=== PATIENT | female | born 1975 | race Caucasian/White ===

== ENCOUNTER 2018-04-29 14:28 | Inpatient (IN) | payer MEDICARE, OTHER ==
[~2018-04-29] VITALS: Ht 170.2 cm; Wt 92.2 kg
[~2018-04-29 14:28] MED LIST: IBUP-1986 PO
[2018-04-29] MEDS ORDERED: acetaminophen 325mg tablet PO PRN (15:10)
[2018-04-29] MEDS ORDERED: mag hydrox/Alum hydrox/simeth 30ml oral suspension PO PRN (15:10)
[2018-04-29] MEDS ORDERED: tuberculin, purif. prot. deriv. 5 units/0.1ml ID ONE (15:10)
[2018-04-29] MEDS ORDERED: TRAM50TA2 PO (15:57)
[2018-04-29] MEDS ORDERED: ASPI-803 PO (15:57)
[2018-04-29] MEDS ORDERED: TRAZ-218 PO (15:57)
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
[2018-04-29 16:45] LABS: CHOL/HDL RATIO 3.4 (0.00-4.99); CHOLESTEROL 141 MG/DL (0-200); HDL CHOLESTEROL 42 MG/DL (35-60); LDL CHOLESTEROL 80 MG/DL (50-100); TRIGLYCERIDES 53 MG/DL (20-135)
[2018-04-29 19:00] VITALS: BP 135/80
[2018-04-29] MEDS ORDERED: ondansetron 4mg rapidly disintigrating tab PO PRN (20:30)
--- NOTE | 2018-04-30 01:52 | NUR ---
Chief Complaint: Patient admitted for suicidal ideation, states she wants to cut her wrists or take an overdose of pills. Legal hold: 5150 Client on voluntary/involuntary status for DTS/DTO. Report received from ROMIE Desai with use of SBAR. Why are they here: Patient transferred her from [facility]. She is admitted for suicidal ideation. Patient threatens to overdose on medications or cut her own wrists. Patient threatens to hurt others if they hurt her. Patient has been off her [place] for the past six months. She describes command hallucinations and state they have been telling her to hurt herself. Diagnosis/presenting symptoms: Suicidal ideation, depression. Assessment: The patient presents with a flat affect. She self isolates in her room. Patient describes command hallucinations that tell her to hurt herself. Patient is cooperative with staff. Q15 minute rounding for patient safety. What has happened this shift: Patient stays in her room. She admits to depression. Patient states she has been off her [place] for the past six months. She is cooperative and compliant with nursing staff. S/I, H/I: "Yes, and if someone hurts me I will hurt them." A/VH: Command hallucinations tellig patient to hurt herself. Sleep:Good. ADL's:None Group attendance:Not on collection supervisor. Were meds taken: Patient is medication compliant. Any med S/E: None Mental Status Exam Appearance:Patient is dressed appropriately. Eye contact:Fair eye contact. Behavior:WNL Speech:WNL Mood:Depressed. Affect:Flat Thought process:Good insight. Thought Content:Command hallucinations. Cognition:Good focus. Insight:Good Judgment:Poor. Interventions: PRN's used:None Therapeutic interventions:None Restraints/seclusion/emergency medication:None Justification of Continued Inpatient Treatment: Patient is in need of medical management for her suicidal ideation and depression along with management of her psychiatric medications.
[2018-04-30 08:00] VITALS: BP 133/83
[2018-04-30] MEDS: nicotine 21mg patch - 24 hr TD SCH (08:04)
[2018-04-30] MEDS: acetaminophen 325mg tablet PO PRN (08:11)
[2018-04-30] MEDS ORDERED: pneumococcal 23-VAL P-sac vacc 25 mcg/0.5ml vial IMVAC ONE (09:00)
[2018-04-30] MEDS ORDERED: multi-vitamin w/minerals & ferrous gluconate 9 MG/15 ML oral LIQUID PO SCH (09:05)
[2018-04-30] MEDS: pantoprazole 40mg Tablet.DR PO SCH (12:51)
--- NOTE | 2018-04-30 14:10 | NUR ---
Chief Complaint: Patient admitted for suicidal ideation, states she wants to cut her wrists or take an overdose of pills. Legal hold: 5150 exp 05/02/18 at 1420 Client on involuntary status for DTS/DTO. Report received from ROMIE Beatty with use of SBAR. Why are they here: Patient transferred her from [facility]. She is admitted for suicidal ideation. Patient threatens to overdose on medications or cut her own wrists. Patient threatens to hurt others if they hurt her. Patient has been off her [place] for the past six months. She describes command hallucinations and state they have been telling her to hurt herself. Diagnosis/presenting symptoms: Psychosis with severe depression due to bipolar affective disorder Assessment: Patient visible on the unit, up for meals in groups. During free time patient remained in the day room watching TV and minimally interacting with peers and staff. When talking with Shaunna first thing this morning, patient had an angry affect stated she was angry with people bug me patient unable to elaborate on the reason for her irritation. Patient did state she was experiencing auditory hallucinations telling her to kill people. Patient also continues to endorse suicidal thoughts. As the day went on, patients affect appeared to brighten and she was more friendly with staff and peers; smiling more freely. S/I, H/I: SI and HI A/VH: Command hallucinations telling patient to kill others. Sleep:Good. ADL's:None Group attendance:Y Were meds taken: Y Any med S/E: None Mental Status Exam Appearance:Patient is dressed appropriately. Eye contact:Fair eye contact. Behavior:WNL Speech:WNL Mood:Depressed. Affect:Flat Thought process:Good insight. Thought Content:Command hallucinations. Cognition:Good focus. Insight:Good Judgment:Poor. Interventions: PRN's used:None Therapeutic interventions:None Restraints/seclusion/emergency medication:None Justification of Continued Inpatient Treatment: Patient is in need of medical management for her suicidal ideation and depression along with management of her psychiatric medications.
--- NOTE | 2018-04-30 15:00 | NUR ---
PPD PPD administered at 1255 right arm
[2018-04-30] MEDS ORDERED: VRAYLAR PO ONE (16:55)
[2018-04-30] MEDS: VRAYLAR 1.5 MG PO SCH (17:34)
[2018-04-30] MEDS ORDERED: LORazepam 1 MG tablet PO ONE (19:35)
[2018-04-30] MEDS ORDERED: diphenhydrAMINE 25mg capsule PO ONE (19:35)
[2018-04-30] MEDS ORDERED: haloperidol 5mg tablet PO ONE (19:35)
[2018-04-30 20:00] VITALS: BP 120/76
[2018-04-30] MEDS: traZODone 50mg tablet PO SCH (20:47)
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
--- NOTE | 2018-05-01 01:35 | NUR ---
See Addedum for NOC note for 05/01.
[2018-05-01] MEDS: pantoprazole 40mg Tablet.DR PO SCH (07:44)
[2018-05-01] MEDS: nicotine 21mg patch - 24 hr TD SCH (07:45)
[2018-05-01 08:00] VITALS: BP 136/80
[2018-05-01] MEDS ORDERED: VRAYLAR PO SCH (08:00)
[2018-05-01] MEDS: VRAYLAR 1.5 MG PO SCH (08:57)
--- NOTE | 2018-05-01 17:14 | NUR ---
Chief Complaint: Pt admitted on a 5150 due to making statements about wanting to with a plan to OD on pills, shoot herself or jump in front of a car. Pt has command auditory hallucinations that tell her to harm herself or others. Legal hold: 515 exp 05/02/18 at 1420 Client on involuntary status for DTS/DTO Report received from ROMIE Zafar with use of SBAR. Why are they here: Patient transferred her from [facility]. [facility] was dispatched due to reports of pedestrian walking on highway that called for assistance. Pt reported being suicidal and homicidal and also reports command hallucinations Diagnosis/presenting symptoms: Psychosis with severe depression due to bipolar affective disorder Assessment Pt asleep at change of shift. Met with RN for 1:1 assessment at the bedside. Pt presents with a flat affect, poverty of speech, does not engage in conversation but will answer close ended questions. Reports audio hallucinations; initially denies V/H, then states "Oh yeah, I see things". When asked to describe the voices, she shook her head no. Reports feeling more suicidal today than before she was hospitalized. C/O nausea, no vomiting. Offered Zofran later in the morning, to which she replied "Why are you asking me that?" and denied any C/O N/V. S/I, H/I: SI that she reports is worsening A/VH: endorses both, but declines to describe Sleep: no reported sleep issues ADL's: none Group attendance: no groups today; watched TV with other patients in the group room Were meds taken: yes Any med S/E: none reported or observed Mental Status Exam Appearance: dressed appropriately, appears stated age Eye contact: poor Behavior: guarded, no psychomotor abnormalities Speech: clear Mood: depressed Affect: flat Thought process: goal directed Thought Content: suicidal Cognition: alert and oriented x4 Insight: good Judgment: fair Interventions PRN's used: none Therapeutic interventions: attempted to engage pt in therapeutic communication, provided safe and calm milieu Restraints/seclusion/emergency medication:None Justification of Continued Inpatient Treatment: Patient remains a danger to self.
[2018-05-01 20:00] VITALS: BP 140/95
[2018-05-01] MEDS: traZODone 50mg tablet PO SCH (20:35)
[2018-05-01] MEDS: magnesium hydroxide 30ml (MOM) UD suspension PO PRN (20:38)
--- NOTE | 2018-05-02 04:32 | NUR ---
Chief Complaint: Pt admitted on a 5150 due to making statements about wanting to with a plan to OD on pills, shoot herself or jump in front of a car. Pt has command auditory hallucinations that tell her to harm herself or others. Legal hold: 5149 exp 05/02/18 at 1420 Client on involuntary status for DTS/DTO. Report received from Julissa GRUBBS with use of SBAR. Why are they here: Patient transferred her from [facility]. [facility] was dispatched due to reports of pedestrian walking on highway that called for assistance. Pt reported being suicidal and homicidal to [facility] and also reported command hallucinations that tell her to hurt herself and others. Diagnosis/presenting symptoms: Psychosis with severe depression due to bipolar affective disorder, S/I, H/I, AV/H, irritable mood, depression Assessment: Pt lying in bed at the start of the shift reading a book and remained in her room until she went to sleep. She does not appear to be responding to internal stimuli. She continues to appear angry, irritable, she did answer yes or no to questions, but would not go into further details. She refused her evening dose of Trazadone, but did want MOM due to c/o constipation (yesterday she reported having BM) and now states that she hasn't had a BM in 4 days, but she refused to allow me to listen to her bowel sounds, but did allow all other assessments. Denies any nausea this shift and denies any further episodes of vomiting up blood which was reported a couple of days ago. S/I, H/I: continues to endorse being suicidal and having command hallucinations that tell her to harm herself and other A/VH: continues to endorse command hallucinations that tell her to harm herself and others Sleep:Good. ADL's:Independent Group attendance:no groups this shift Were meds taken: no, pt refused evening dose of Trazadone, when I asked why, she stated "I just don't want it" Any med S/E: None Mental Status Exam Appearance: wearing hospital scrubs Eye contact: poor Behavior: continues to be irritable and guarded Speech: normal rate, rhythm, volume Mood:irritable Affect:angry, blunted Thought process:linear Thought Content:Command hallucinations. Cognition: appears WNL Insight:fair Judgment:Poor. Interventions: PRN's used:none Therapeutic interventions:assessment and 1:1, develop rapport with pt, educated pt to let us know if she has difficulty with sleeping, reassure pt and provide reality feedback PRN Restraints/seclusion/emergency medication:None Justification of Continued Inpatient Treatment: Pt continues to be a danger to herself and others and needs acute stabilization.
[2018-05-02] MEDS: pantoprazole 40mg Tablet.DR PO SCH (07:37)
[2018-05-02] MEDS: nicotine 21mg patch - 24 hr TD SCH (07:37)
[2018-05-02] MEDS: VRAYLAR 1.5 MG PO SCH ×2 (07:38→21:00)
[2018-05-02 08:00] VITALS: BP 152/97
--- NOTE | 2018-05-02 13:10 | NUR ---
Chief Complaint: Pt admitted on a 5150 due to making statements about wanting to with a plan to OD on pills, shoot herself or jump in front of a car. Pt has command auditory hallucinations that tell her to harm herself or others. Legal hold: 5149 exp 05/02/18 at 1420 Client on involuntary status for DTS/DTO. Report received from ROMIE Zafar with use of SBAR. Why are they here: Patient transferred here from [facility]. [facility] was dispatched due to reports of pedestrian walking on highway that called for assistance. Pt reported being suicidal and homicidal to [facility] and also reported command hallucinations that tell her to hurt herself and others. Diagnosis/presenting symptoms: Psychosis with severe depression due to bipolar affective disorder, S/I, H/I, AV/H, irritable mood, depression Assessment: Pt lying in bed at change of shift. Met with RN for 1:1 assessment at the bedside after breakfast. Pt presents with a flat affect, giving little to no responses. She does not elaborate on any answers without lots of prompting. She reports no changes in mood, S/I, H/I, or A/H on current medications. Does not appear to be responding to internal stimuli. Endorses H/I states that shes thinking about hurting both patients and staff, but when asked to elaborate, she states Well Im not going to murder anyone. Pt isolates in her room for much of the day. S/I, H/I: endorses both A/VH: reports A/H, does not elaborate Sleep: no complaints ADLs: self care, showered today Group attendance: attended art therapy this afternoon Were meds taken: yes Any med S/E: denies Mental Status Exam Appearance: wearing green hospital scrubs, hair is braided Eye contact: fair Behavior: irritable, guarded, no psychomotor abnormalities Speech: clear, poverty of speech Mood: irritable, depressed Affect: tense, blunted Thought process: linear, goal directed Thought Content: poverty of speech, difficult to assess Cognition: alert and oriented x4 Insight: fair Judgment: difficult to assess Interventions: PRN's used: none Therapeutic interventions: 1:1 assessment with patient to built rapport, provided supportive and calm environment, encouraged patient to engage in group activities Justification of Continued Inpatient Treatment: Pt continues to be a danger to herself and others and needs acute stabilization.
[2018-05-02 19:57] VITALS: BP 170/100
[2018-05-02] MEDS: traZODone 50mg tablet PO SCH (21:00)
--- NOTE | 2018-05-03 03:02 | NUR ---
RN PROGRESS NOTE: Chief Complaint: Suicidal Ideation. Client stated, "I'm the most suicidal person you'll ever meet." Reported that she would overdose "on pills". Was found walking in the roadway. Legal hold: 5150 for DTS/DTO. Report received from Julissa Carey RN. Diagnosis/presenting symptoms: Depression and bipolar disorder. Client presents as angry and hostile. Assessment: Lying in bed COS. Client was asleep when this RN entered her room. Easy to awaken. Presents as angry. Does not make eye contact and gives alonso, one word answers to questions. Refuses to allow Nicotine patch to be removed. Uncooperative, will not discuss group attendance or issues relevant to her care. Once client took medications she laid back in bed and turned her back to this RN. S/I, H/I: Unable to assess. A/VH: Unable to assess. Sleep: No sleep issues reported. ADLs: Independent Group attendance: Reported that she attended group. Any med S/E: None reported. Mental Status Exam: Appearance: Wearing green scrubs. Eye contact: Avoided eye contact. Behavior: Angry, irritable. Speech: clear, poverty of speech Mood: irritable Affect: constricted Thought process: linear, no evidence of AH/VH Thought Content: difficult to assess Insight: Poor Judgment: Poor Interventions: PRN's used: none Therapeutic interventions: 1:1 support. Justification of Continued Inpatient Treatment: Significant anger and depression. Reported that the client continues to make suicidal statements.
[2018-05-03 07:35] VITALS: BP 147/104
[2018-05-03] MEDS: nicotine 21mg patch - 24 hr TD SCH (07:49)
[2018-05-03] MEDS: pantoprazole 40mg Tablet.DR PO SCH (07:50)
[2018-05-03] MEDS: VRAYLAR 1.5 MG PO SCH (07:50)
[2018-05-03] MEDS: acetaminophen 325mg tablet PO PRN (12:03)
--- NOTE | 2018-05-03 12:19 | NUR ---
RN PROGRESS NOTE Chief Complaint: Pt admitted on a 5150 due to making statements about wanting to with a plan to OD on pills, shoot herself or jump in front of a car. Pt has command auditory hallucinations that tell her to harm herself or others. Legal hold: 5250 Client on involuntary status for DTS/DTO. Report received from Molly Beckman RN with use of SBAR. Why are they here: Patient transferred here from [facility]. [facility] was dispatched due to reports of pedestrian walking on highway that called for assistance. Pt reported being suicidal and homicidal to [facility] and also reported command hallucinations that tell her to hurt herself and others. Diagnosis/presenting symptoms: Psychosis with severe depression due to bipolar affective disorder, S/I, H/I, AV/H Assessment: Pt lying in bed at change of shift. Met with RN for 1:1 assessment at the bedside this AM. Observed patient walking back to her room from the shower, laughing in the hallway. Pt standing at her sink as this RN knocked on the open door and entered. Pt states You have the worst fucking timing. Asked patient if there is a better time that she could meet for her assessment, to which she replied How about never. Attempted to gain understanding of what was upsetting patient when she began making verbal threats toward this RN (clarified Im not going to fucking murder you) and refused to participate in the assessment. The only information given was the statement that she is more suicidal today. Shortly after, patient sitting in the group room speaking kindly to another patient. At noon, patient calmly approached this RN and requested Tylenol for a headache. S/I, H/I: reports more suicidal today A/VH: refuses assessment. Does not appear to be responding to internal stimuli Sleep: refuses assessment ADLs: self care, showered today Group attendance: attended group therapy this AM Were meds taken: yes Any med S/E: refuses assessment Mental Status Exam Appearance: wearing green hospital scrubs, clean and appropriately dressed Eye contact: fair Behavior: irritable, guarded, makes verbal threats Speech: clear Mood: irritable, depressed Affect: blunted, angry Thought process: goal directed Thought Content: poverty of speech, difficult to assess Cognition: alert and oriented x4 Insight: refused to answer questions, difficult to assess Judgment: refused to answer questions, difficult to assess Interventions PRN's used: Tylenol Therapeutic interventions: Attempted to build rapport with patient, provided safe and calm milieu Justification of Continued Inpatient Treatment: Pt continues to be a danger to herself and others and needs acute stabilization for further stabilization
[2018-05-03] MEDS ORDERED: hydrOXYzine 25 MG tablet PO ONE (19:30)
[2018-05-03 19:43] VITALS: BP 143/96
[2018-05-03 20:00] VITALS: BP 120/80
[2018-05-03] MEDS: traZODone 50mg tablet PO SCH (20:11)
[2018-05-03] MEDS: hydrOXYzine 25 MG tablet PO SCH (21:00)
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
[2018-05-04 06:56] VITALS: BP 146/76
[2018-05-04 06:59] VITALS: BP 146/76
[2018-05-04 07:01] VITALS: BP 146/76
[2018-05-04] MEDS: VRAYLAR 1.5 MG PO SCH (08:00)
[2018-05-04] MEDS: pantoprazole 40mg Tablet.DR PO SCH (08:32)
[2018-05-04] MEDS: hydrOXYzine 25 MG tablet PO SCH ×3 (08:32→21:00)
[2018-05-04] MEDS: magnesium hydroxide 30ml (MOM) UD suspension PO PRN (09:55)
[2018-05-04] MEDS: nicotine 21mg patch - 24 hr TD SCH (09:56)
--- NOTE | 2018-05-04 16:35 | NUR ---
RN PROGRESS NOTE Chief Complaint: Pt admitted on a 5150 due to making statements about wanting to with a plan to OD on pills, shoot herself or jump in front of a car. Pt had command auditory hallucinations that tell her to harm herself or others. Legal hold: 5250 Client on involuntary status for DTS/DTO. Report received from Nemo GRUBBS, with use of SBAR Why are they here: Patient transferred here from [facility]. [facility] was dispatched due to reports of pedestrian walking on highway that called for assistance. Pt reported being suicidal and homicidal to [facility] and also reported command hallucinations that tell her to hurt herself and others. Diagnosis/presenting symptoms: Psychosis with severe depression due to bipolar affective disorder, S/I, H/I, AV/H Assessment: Patient visible on unit in a.m. Patient stayed mostly to herself and did not initiate interaction with peers or staff. Patient continues to endorse suicidal thoughts and homicidal thoughts. Patient states she continues to have auditory hallucinations telling her to hurt herself or others. Patient requested PRN Ativan this morning, but it was not ordered. RN spoke to M.D. regarding anti-anxiety medication and he stated he wasnt going to order any more than the routine Vistaril. Discussed this with patient and she was able to manage herself appropriately. After lunch patient took a long nap and was not as visible on the unit. Patient did attend groups. S/I, H/I: +S.I./H.I. A/VH: voices telling her to hurt self or others Sleep: nap ADLs: self care, showered today Group attendance: yes Were meds taken: yes Any med S/E: no Mental Status Exam Appearance: wearing green hospital scrubs, clean and appropriately dressed Eye contact: fair Behavior: little interaction with others Speech: clear Mood: apathetic Affect: blunted Thought process: goal directed Thought Content: poverty of speech, difficult to assess Cognition: alert and oriented x4 Insight: fair Judgment: poor Interventions PRN's used: Therapeutic interventions: Attempted to build rapport with patient, provided safe and calm milieu, 1:1 interaction Justification of Continued Inpatient Treatment: Pt continues to be a danger to herself and others and needs acute stabilization for further stabilization
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
[2018-05-04] MEDS: acetaminophen 325mg tablet PO PRN (19:13)
[2018-05-04 19:51] VITALS: BP 112/68
[2018-05-04] MEDS: traZODone 50mg tablet PO SCH (21:00)
--- NOTE | 2018-05-05 00:09 | NUR ---
RN PROGRESS NOTE Chief Complaint: Pt admitted on a 5150 due to making statements about wanting to with a plan to OD on pills, shoot herself or jump in front of a car. Pt had command auditory hallucinations that tell her to harm herself or others. Legal hold: 5250 Client on involuntary status for DTS/DTO. Report received from Nemo GRUBBS, with use of SBAR Why are they here: Patient transferred here from [facility]. [facility] was dispatched due to reports of pedestrian walking on highway that called for assistance. Pt reported being suicidal and homicidal to [facility] and also reported command hallucinations that tell her to hurt herself and others. Diagnosis/presenting symptoms: Psychosis with severe depression due to bipolar affective disorder, S/I, H/I, AV/H Assessment: Patient visible on unit at the very beginning of the shift, but soon went off to bed. On initial assessment, patient did state that she continued to have auditory hallucinations telling her to kill her mother and herself. Patient also complained of pain for out of 10 in her right leg and she was given Tylenol. Patient fell asleep in her bed around 8 oclock. Patient was awoken for HS medications, but she refused. She stated she didnt need them. Patient wants for the bathroom, but otherwise slept peacefully without complaints. S/I, H/I: +S.I./H.I. A/VH: voices telling her to hurt self or others Sleep: ADLs: self care, showered today Group attendance: yes Were meds taken: yes Any med S/E: no Mental Status Exam Appearance: wearing green hospital scrubs, clean and appropriately dressed Eye contact: fair Behavior: little interaction with others Speech: clear Mood: apathetic Affect: blunted Thought process: goal directed Thought Content: poverty of speech, difficult to assess Cognition: alert and oriented x4 Insight: fair Judgment: poor Interventions PRN's used: Therapeutic interventions: Attempted to build rapport with patient, provided safe and calm milieu, 1:1 interaction Justification of Continued Inpatient Treatment: Pt continues to be a danger to herself and others and needs acute stabilization for further stabilization
[2018-05-05 08:00] VITALS: BP 130/80
[2018-05-05] MEDS: hydrOXYzine 25 MG tablet PO SCH ×3 (08:05→20:26)
[2018-05-05] MEDS: pantoprazole 40mg Tablet.DR PO SCH (08:05)
[2018-05-05] MEDS: VRAYLAR 1.5 MG PO SCH (08:06)
[2018-05-05] MEDS: nicotine 21mg patch - 24 hr TD SCH (08:25)
[2018-05-05] MEDS ORDERED: propranolol 10mg tablet PO PRN (16:10)
--- NOTE | 2018-05-05 17:01 | NUR ---
Initial: Pt admitted to [facility] d/t suicidal and homicidal ideation. Pt currently on regular diet with documented PO intake 75-100% meeting nutrient needs. LBM 05/04. No edema or wounds. Will continue to follow. Recommendations: 1) Continue with regular diet 2) Weekly wt Addendum: 05/05/18 at [address] Amended: Links added.
--- NOTE | 2018-05-05 17:50 | NUR ---
RN PROGRESS NOTE Chief Complaint: Pt admitted on a 5150 due to making statements about wanting to with a plan to OD on pills, shoot herself or jump in front of a car. Pt had command auditory hallucinations that tell her to harm herself or others. Legal hold: Volutary Client on involuntary status for DTS/DTO. Report received from Gopal GRUBBS, verbally and with use of SBAR Why are they here: Patient transferred here from [facility]. [facility] was dispatched due to reports of pedestrian walking on highway that called for assistance. Pt reported being suicidal and homicidal to [facility] and also reported command hallucinations that tell her to hurt herself and others. Diagnosis/presenting symptoms: Psychosis with severe depression due to bipolar affective disorder, S/I, H/I, AV/H Assessment: Patient visible on unit in a.m. Short angry outbursts toward another client that stopped without escalation. Appeared to enjoy talking to another client in group room prior to lunch. Patient states she continues to have auditory hallucinations telling her to hurt herself or others. Patient requested PRN Ativan in late morning after speaking with BOB Stephens, but it was not ordered. RN spoke to M.D. After lunch patient napped in her room for most of afternoon and then ate dinner. Patient did attend groups. S/I, H/I: +S.I./H.I. A/VH: voices telling her to hurt self or others Sleep: nap ADLs: self care, showered today Group attendance: yes Were meds taken: yes Any med S/E: no Mental Status Exam Appearance: wearing green hospital scrubs, clean and appropriately dressed Eye contact: fair Behavior: Cooperative with brief moments of anger Speech: clear Mood: apathetic Affect: blunted Thought process: goal directed Thought Content: poverty of speech Cognition: alert and oriented x4 Insight: fair Judgment: poor Interventions PRN's used: None Therapeutic interventions: Attempted to build rapport with patient, provided safe and calm milieu, 1:1 interaction Justification of Continued Inpatient Treatment: Pt continues to be a danger to herself and others and needs acute stabilization for further stabilization
[2018-05-05 20:00] VITALS: BP 98/55
[2018-05-05] MEDS: traZODone 50mg tablet PO SCH (21:00)
--- NOTE | 2018-05-05 22:14 | NUR ---
RN PROGRESS NOTE Chief Complaint: Pt admitted on a 5150 due to making statements about wanting to with a plan to OD on pills, shoot herself or jump in front of a car. Pt had command auditory hallucinations that tell her to harm herself or others. Legal hold: Voluntary Client on involuntary status for DTS/DTO. Report received from Fernandez GRUBBS. Why are they here: Patient transferred here from [facility]. [facility] was dispatched due to reports of pedestrian walking on highway that called for assistance. Pt reported being suicidal and homicidal to [facility] and also reported command hallucinations that tell her to hurt herself and others. Diagnosis/presenting symptoms: Psychosis with severe depression due to bipolar affective disorder, S/I, H/I, AV/H Assessment: Pt was laying in bed sleeping at change of shift. 1:1 assessment completed at bedside. Pt continues to endorse s/i and H/i, but when asked about a plan she replies "I dont know." Pt appeared agitated and gave brief answers to questions. Asked pt if she had any plans to harm anyone or herself while she is here? Pt states "No." Pt states her meds are working and her appetite is poor but then she asked for a sandwich, milk and crackers. Pt is irritable and not willing to converse tonight. S/I, H/I: Pt continues to endorse s/i and h/i, when asked about a plan for each pts response for both was "I dont know." A/VH: "YES" Sleep: Pt remained in bed sleeping for the duration of the shift. ADLs: independent Group attendance: none offered during shift coordinator Were meds taken: Pt took Atarax but refused trazodone Any med S/E: none reported or observed Mental Status Exam Appearance: adequately groomed and dressed Eye contact: fair Behavior: Cooperative, agitated, hostile Speech: clear Mood: irritable Affect: constricted Thought process: unable to assess Thought Content: poverty of speech Cognition: alert and oriented x4 Insight: poor Judgment: poor Interventions PRN's used: None Therapeutic interventions: 1:1 assessment, attempt to build rapport, observed q 15 min for safety, Justification of Continued Inpatient Treatment: Pt continues to be dts/dto and continued stabilization.
[2018-05-06] MEDS: pantoprazole 40mg Tablet.DR PO SCH (07:53)
[2018-05-06] MEDS: hydrOXYzine 25 MG tablet PO SCH ×2 (07:53→13:06)
[2018-05-06] MEDS: VRAYLAR 1.5 MG PO SCH (07:53)
[2018-05-06 08:00] VITALS: BP 116/75
[2018-05-06] MEDS: nicotine 21mg patch - 24 hr TD SCH (08:00)
[2018-05-06] MEDS: acetaminophen 325mg tablet PO PRN (10:09)
[2018-05-06] MEDS ORDERED: HYDR-3686 PO (12:06)
[2018-05-06] MEDS ORDERED: PROP10TA10 PO (12:06)
[2018-05-06] MEDS ORDERED: PANT40TA4 PO (12:06)
[2018-05-06] MEDS ORDERED: TRAZ-218 PO (12:06)
--- NOTE | 2018-05-06 14:00 | NUR ---
NURSING DISCHARGE NOTE The patient was discharged at 1400 on 05/06/18 . The patient was escorted to the lobby by ELEN Covington with all belongings, instructions and medications. She understands she is to F/U with [facility]. The patient stated she was "ready to leave." Denied suicidal thoughts.
== END 2018-05-06 14:00 | disposition home or self-care (01) | DRG 885 ==
LOC: ADULT MH 14:28
PROVIDERS: ADMIT Psychiatry & Neurology Psychiatry; ATTEND Psychiatry & Neurology Psychiatry
DX: F32.3 Major depressive disorder, single episode, severe with psychotic features (principal); R45.851 Suicidal ideations; K21.9 Gastro-esophageal reflux disease without esophagitis; F15.90 Other stimulant use, unspecified, uncomplicated; F41.1 Generalized anxiety disorder; F07.81 Postconcussional syndrome; F17.210 Nicotine dependence, cigarettes, uncomplicated; F43.10 Post-traumatic stress disorder, unspecified; Z28.21 Immunization not carried out because of patient refusal; Z98.84 Bariatric surgery status; Z88.8 Allergy status to other drugs, medicaments and biological substances; Z79.899 Other long term (current) drug therapy; Z87.820 Personal history of traumatic brain injury; Z91.410 Personal history of adult physical and sexual abuse
CPT/HCPCS: 36415; 80061; 83036; 87070; 90732; 99285; Q0163; Q0177

== ENCOUNTER 2018-05-10 20:55 | Inpatient (IN) | payer MEDICARE, OTHER ==
[~2018-05-10] VITALS: Ht 170.2 cm; Wt 94.1 kg
[~2018-05-10 20:55] MED LIST changes: +HYDR-3686 PO; -IBUP-1986 PO; +PANT40TA4 PO; +PROP10TA10 PO; +TRAZ-218 PO
--- NOTE | 2018-05-11 00:16 | NUR ---
Nursing Admission Note: The patient is a 42 year old female who was referred by [facility] on a 5150 for being a danger to herself. She was found on the of this month unresponsive by [place] law enforcement officers in a local motel room after taking an unknown amount of trazodone and propranolol in a suicide attempt. Prior to taking the overdose she wrote a long rambling angry, paranoid suicide letter addressed to "whom it may concern" She was taken to [facility] where she was intubated and stabilized in the ICU. [facility] reports this is her 2nd suicide attempt in the past two weeks. Her drug screen was positive for methamphetamine and amphetamines. She had a CXR which indicated LLL pneumonia and was on PO Levaquin 750mg per day. The patient was recently hospitalized at [facility] from 04/29/18 until 05/06/18. Her discharge dx included; Bipolar disorder with psychosis, PTSD, Anxiety, GERD, BRITTANY, R/O BPD. She was discharged back to [facility]. The patient presented to the unit as cooperative with the admit process. She appears disheveled. The states she still feels suicidal and her plan is to cut her wrists. She denies psychotic symptoms.
[2018-05-11] MEDS ORDERED: acetaminophen 325mg tablet PO PRN ×2 (00:20→00:50)
[2018-05-11] MEDS ORDERED: mag hydrox/Alum hydrox/simeth 30ml oral suspension PO PRN (00:50)
[2018-05-11] MEDS ORDERED: LORazepam 1 MG tablet PO PRN (00:50)
[2018-05-11 00:59] VITALS: BP 106/67
--- NOTE | 2018-05-11 04:09 | NUR ---
Chief Complaint Depression Suicide attempt Legal hold: 5150 Client on involuntary status for DTS Report received from nurse with use of SBAR direct admit. Why are they here: She was found on the of this month unresponsive by [place] law enforcement officers in a local motel room after taking an unknown amount of trazodone and propranolol in a suicide attempt. Prior to taking the overdose she wrote a long rambling angry, paranoid suicide letter addressed to "whom it may concern" She was taken to [facility] where she was intubated and stabilized in the ICU. [facility] reports this is her 2nd suicide attempt in the past two weeks. Her drug screen was positive for methamphetamine and amphetamines. Diagnosis/presenting symptoms: Depression suicide attempt Assessment Unkempt overweight woman. Affect bland appears very tired. What has happened this shift: Admitted at 0100. The patient was cooperative with the admit process. She answered questions but did not elaborate. Pt c/o being very tired She appears disheveled. The states she still feels suicidal and her plan is to cut her wrists. She denies psychotic symptoms. S/I, H/I: denies A/VH: denies Sleep: sleeping at this time ADL's: independent Group attendance: no admit at 0100 Were meds taken: no none ordered Any med S/E no Mental Status Exam Appearance: unkempt Eye contact: fair Behavior: cooperative but pt very sleepy admit at 0100 Speech: clear normal volume Mood: tired Affect: bland Thought process: logical Thought Content: Cognition: good Insight: poor Judgment: fair Interventions PRN's used: none Therapeutic interventions: 1:1 admit process. Therapeutic listening. Restraints/seclusion/emergency medication: none Justification of Continued Inpatient Treatment: Treatment of depression pt has suicidal Ideation Nursing Admission Note: The patient is a 42 year old female who was referred by [facility] on a 5150 for being a danger to herself. She was found on the 7th of this month unresponsive by [place] law enforcement officers in a local motel room after taking an unknown amount of trazodone and propranolol in a suicide attempt. Prior to taking the overdose she wrote a long rambling angry, paranoid suicide letter addressed to "whom it may concern" She was taken to [facility] where she was intubated and stabilized in the ICU. [facility] reports this is her 2nd suicide attempt in the past two weeks. Her drug screen was positive for methamphetamine and amphetamines. She had a CXR which indicated LLL pneumonia and was on PO Levaquin 750mg per day. The patient was recently hospitalized at [facility] from 04/29/18 until 05/06/18. Her discharge dx included; Bipolar disorder with psychosis, PTSD, Anxiety, GERD, BRITTANY, R/O BPD. She was discharged back to [facility]. The patient presented to the unit as cooperative with the admit process. She appears disheveled. The states she still feels suicidal and her plan is to cut her wrists. She denies psychotic symptoms.
[2018-05-11 08:00] VITALS: BP 112/66
[2018-05-11] MEDS: nicotine 21mg patch - 24 hr TD SCH (08:36)
[2018-05-11 13:19] LABS: URINE HCG NEGATIVE (NEG)
[2018-05-11 13:23] LABS: CLARITY,URINE SLIGHTLY CLOUDY (Clear); COLOR,URINE YELLOW (Yellow); GLUCOSE, URINE NEGATIVE (Neg); KETONES,URINE NEGATIVE (Neg); LEUKOCYTE ESTERASE ,URINE SMALL (Neg); NITRITES, URINE NEGATIVE (Neg); OCCULT BLOOD,URINE LARGE (Neg); PH,URINE 5.5 (4.8-8.0); PROTEIN,URINE NEGATIVE (Neg); UROBILINOGEN,URINE 0.2 E.U/dL (0.2-1.0)
[2018-05-11 13:27] LABS: UA COLLECTION TYPE CLN CATCH MIDSTREAM
[2018-05-11 13:31] LABS: BACTERIA,URINE 2+ /HPF (Neg); SQUAMOUS EPITHELIAL CELL,UR MANY /LPF (FEW)
--- NOTE | 2018-05-11 16:21 | NUR ---
NURSING PROGRESS NOTE Chief Complaint: Depression, Suicide attempt Legal hold: 5150 Client on involuntary status for DTS Report received from ROMIE Sosa with use of SBAR . Why are they here: She was found on the of this month unresponsive by [place] law enforcement officers in a local motel room after taking an unknown amount of trazodone and propranolol in a suicide attempt. Prior to taking the overdose she wrote a long rambling angry, paranoid suicide letter addressed to "whom it may concern." She was taken to [facility] where she was intubated and stabilized in the ICU. [facility] reports this is her 2nd suicide attempt in the past two weeks. Her drug screen was positive for methamphetamine and amphetamines. Diagnosis/presenting symptoms: Depression suicide attempt Assessment: What has happened this shift: The patient was awake at change of shift. Ate meals with others in group room. Stated she was still feeling suicidal but was able to state that she would not attempt to kill herself today on the unit. Reported taking a drug overdose in a hotel room and "really wanting to ", but then she got scared and called 911 herself, stating "I barely made it I guess it was really bad." Slept in between meals and stated she was feeling very sleepy and tired today. S/I, H/I: feeling suicidal and thinks of cutting wrists A/VH: denies Sleep: napped throughout day ADL's: independent Group attendance: none Were meds taken: habitrol patch Any med S/E no Mental Status Exam Appearance: mildly disheveled Eye contact: good Behavior: cooperative Speech: clear and soft Mood: depressed Affect: bland Thought process: wnl Thought Content: depressive Cognition: a&ox4 Insight: poor Judgment: poor Interventions PRN's used: none Therapeutic interventions: 1:1 assessment, therapeutic listening reassurance and recognition. Restraints/seclusion/emergency medication: none Justification of Continued Inpatient Treatment: Treatment of depression pt has suicidal Ideation
[2018-05-11 19:31] VITALS: BP 113/73
--- NOTE | 2018-05-11 20:52 | NUR ---
NURSING PROGRESS NOTE Chief Complaint: Depression, Suicide attempt Legal hold: 5150 Client on involuntary status for DTS Report received from (no report same RN) Why are they here: She was found on the of this month unresponsive by [place] law enforcement officers in a local motel room after taking an unknown amount of trazodone and propranolol in a suicide attempt. Prior to taking the overdose she wrote a long rambling angry, paranoid suicide letter addressed to "whom it may concern." She was taken to [facility] where she was intubated and stabilized in the ICU. [facility] reports this is her 2nd suicide attempt in the past two weeks. Her drug screen was positive for methamphetamine and amphetamines. Diagnosis/presenting symptoms: Depression suicide attempt Assessment: What happened this shift: The patient was asleep at change of shift. She got up to eat dinner and then went back to bed and fell asleep. States she is still having suicidal thoughts about cutting her wrists but she contracts for safety and agrees not to harm himself on the unit tonight. No NOC medications ordered, requests to keep on Habitrol patch tonight. S/I, H/I: feeling suicidal and thinks of cutting wrists A/VH: denies Sleep: sleeping ADL's: independent Group attendance: none Were meds taken: non ordered Any med S/E no Mental Status Exam Appearance: mildly disheveled Eye contact: good Behavior: cooperative Speech: clear and soft Mood: depressed Affect: bland Thought process: wnl Thought Content: depressive Cognition: a&ox4 Insight: poor Judgment: poor Interventions PRN's used: none Therapeutic interventions: 1:1 assessment, therapeutic listening reassurance and recognition, verbal safety contract Restraints/seclusion/emergency medication: none Justification of Continued Inpatient Treatment: Treatment of depression pt has suicidal Ideation, and recent serious suicide attempt.
[2018-05-12 07:21] LABS: BASOPHILS % (AUTO) 0.5 % (0-1); EOSINOPHILS # (AUTO) 0.1 X10'3 (0-0.9); EOSINOPHILS % (AUTO) 1.7 % (0-6); HEMATOCRIT 34.5 % (35.0-45.0); HEMOGLOBIN 10.9 g/dl (12.0-16.0); LYMPHOCYTES # (AUTO) 1.6 X10'3 (1.1-4.8); LYMPHOCYTES % (AUTO) 30.5 % (21-51); MEAN CORPUSCULAR HEMOGLOBIN 26.3 PG (27.0-31.0); MEAN CORPUSCULAR HGB CONC 31.5 % (33.0-36.5); MEAN CORPUSCULAR VOLUME 83.3 FL (78-98); MEAN PLATELET VOLUME 9.3 FL (7.4-10.4); MONOCYTES # (AUTO) 0.4 X10'3 (0-0.9); MONOCYTES % (AUTO) 8.3 % (2-12); NEUTROPHILS # (AUTO) 3.1 X10'3 (1.8-7.7); PLATELET COUNT 210 X10'3 (140-440); RED BLOOD COUNT 4.14 X10'6 (4.20-5.60); RED CELL DISTRIBUTION WIDTH 13.8 % (11.5-14.5); WHITE BLOOD COUNT 5.2 X10'3 (4.5-11.0)
[2018-05-12] MEDS: nicotine 21mg patch - 24 hr TD SCH (07:40)
[2018-05-12 07:46] LABS: ALANINE AMINOTRANSFERASE 49 U/L (12-78); ALBUMIN 2.6 G/DL (3.4-5.0); ALBUMIN/GLOBULIN RATIO 0.9 (1.1-1.5); ALKALINE PHOSPHATASE 56 IU/L (46-116); ANION GAP 6 (8-16); ASPARTATE AMINO TRANSFERASE 90 U/L (10-37); BILIRUBIN,TOTAL 0.4 MG/DL (0.1-1.0); BLOOD UREA NITROGEN 7 MG/DL (7-18); BUN/CREATININE RATIO 8.6 (6.6-38.0); CALCIUM 8.1 MG/DL (8.5-10.1); CHLORIDE 107 MMOL/L (99-107); CHOL/HDL RATIO 5.4 (0.00-4.99); CHOLESTEROL 134 MG/DL (0-200); CREATININE 0.81 MG/DL (0.40-0.90); GLUCOSE 84 MG/DL (70-104); HDL CHOLESTEROL 25 MG/DL (35-60); LDL CHOLESTEROL 95 MG/DL (50-100); POTASSIUM 4.2 MMOL/L (3.5-5.1); SODIUM 141 MMOL/L (135-145); TOTAL CARBON DIOXIDE 27.7 MMOL/L (24-32); TOTAL PROTEIN 5.6 G/DL (6.4-8.2); TRIGLYCERIDES 104 MG/DL (20-135); eGFR 77 ML/MIN
[2018-05-12 08:00] VITALS: BP 104/82
--- NOTE | 2018-05-12 13:40 | NUR ---
NURSING PROGRESS NOTE Chief Complaint: Depression, Suicide attempt Legal hold: 5150 Client on involuntary status for DTS Report received from ROMIE Miles with use of SBAR . Why are they here: She was found on the of this month unresponsive by [place] law enforcement officers in a local motel room after taking an unknown amount of trazodone and propranolol in a suicide attempt. Prior to taking the overdose she wrote a long rambling angry, paranoid suicide letter addressed to "whom it may concern." She was taken to [facility] where she was intubated and stabilized in the ICU. [facility] reports this is her 2nd suicide attempt in the past two weeks. Her drug screen was positive for methamphetamine and amphetamines. Diagnosis/presenting symptoms: Depression , suicide attempt, unable to care for self Assessment: What has happened this shift: The patient was awake at change of shift. Ate meals with others in group room. Stated she was still feeling suicidal and thoughts are worsening today, thoughts of cutting her wrists. She agreed not to harm herself today on unit and stated, "what would I do it with?" Reported taking a drug overdose in a hotel room and "really wanting to ". Seems to be "waking" from her overdose and is more alert today. Having delusional thoughts. Believes she can kill herself and then "go" to where she wants to be, for example if she kills herself here she can "go back to [place] and be there "as a spirit." She stated her roommate in [place] is Sita Matamoros, someone she went to a Methadone clinic with. she also remembered the address where she lived, [address] [place] [address] [facility]. [address] [place] [address], but cannot remember Sita's phone number. Reports having flashbacks of her overdose and unresponsiveness, and EMT's helping her which at one point mad her gag and almost vomit. Listened to music with other patient's this afternoon in rec room. Eating well and taking fluids. S/I, H/I: feeling suicidal and thinks of cutting wrists A/VH: denies Sleep: napped briefly today ADL's: independent Group attendance: x2 Were meds taken: habitrol patch Any med S/E no Mental Status Exam Appearance: mildly disheveled Eye contact: good Behavior: cooperative Speech: clear and soft Mood: depressed Affect: bland Thought process: wnl Thought Content: depressive Cognition: a&ox4 Insight: poor Judgment: poor Interventions PRN's used: none Therapeutic interventions: 1:1 assessment, therapeutic listening reassurance and recognition. Restraints/seclusion/emergency medication: none Justification of Continued Inpatient Treatment: Treatment of depression pt has suicidal Ideation, delusions
[2018-05-12] MEDS: haloperidol 1mg tablet PO SCH (17:47)
[2018-05-12 19:00] VITALS: BP 128/87
[2018-05-12] MEDS: aripiprazole 5mg tablet PO SCH (20:12)
[2018-05-12] MEDS: nicotine prolacrilex 2mg gum BC PRN (20:13)
--- NOTE | 2018-05-12 22:59 | NUR ---
NURSING PROGRESS NOTE Chief Complaint: Depression, Suicide attempt Legal hold: 5150 Client on involuntary status for DTS Report received from Estelle GRUBBS. Why are they here: She was found on the of this month unresponsive by [place] law enforcement officers in a local motel room after taking an unknown amount of trazodone and propranolol in a suicide attempt. Prior to taking the overdose she wrote a long rambling angry, paranoid suicide letter addressed to "whom it may concern." She was taken to [facility] where she was intubated and stabilized in the ICU. [facility] reports this is her 2nd suicide attempt in the past two weeks. Her drug screen was positive for methamphetamine and amphetamines. Diagnosis/presenting symptoms: Depression , suicide attempt, unable to care for self Assessment: What has happened this shift: At change of shift patient was up in the recreation room watching TV and interacting with other patients. She requested a snack at this time, she spoke softly and coherently. She spent time in the recreation room and in her room throughout the shift, she interacted appropriately with other patients. She then turned herself to her room for the evening and put herself to bed. She is currently sleeping. S/I, H/I: Positive for SI, states she would "Cut her wrist, but you guys wont let me do that here." A/VH: Denies Sleep: Sleeping ADL's: Independent Group attendance: None Were meds taken: Abilify Any med S/E: No Mental Status Exam Appearance: Wearing a sweatshirt, and leggings with hair unkempt Eye contact: Good Behavior: Cooperative Speech: Clear/Soft Mood: Depressed Affect: [place] Thought process: WNL Thought Content: Depressed with Suicidal Ideation Cognition: A&OX4 Insight: Poor Judgment: Poor Interventions PRN's used: None Therapeutic interventions: 1:1 assessment at bedside. Therapeutic listening and conversation, patient agreed to contract for safety and find staff if she felt she could harm herself while on the unit. Restraints/seclusion/emergency medication: None Justification of Continued Inpatient Treatment: Treatment of depression patient has suicidal Ideation and delusions.
[2018-05-13] MEDS: haloperidol 1mg tablet PO SCH ×2 (07:33→20:25)
[2018-05-13] MEDS: nicotine prolacrilex 2mg gum BC PRN ×3 (07:33→15:28)
[2018-05-13] MEDS: nicotine 21mg patch - 24 hr TD SCH (07:35)
[2018-05-13 07:40] VITALS: BP 130/87
--- NOTE | 2018-05-13 15:37 | NUR ---
NURSING PROGRESS NOTE Chief Complaint: Depression, Suicide attempt Legal hold: 5150 Client on involuntary status for DTS Report received from ROMIE Miles with use of SBAR . Why are they here: She was found on the of this month unresponsive by [place] law enforcement officers in a local motel room after taking an unknown amount of trazodone and propranolol in a suicide attempt. Prior to taking the overdose she wrote a long rambling angry, paranoid suicide letter addressed to "whom it may concern." She was taken to [facility] where she was intubated and stabilized in the ICU. [facility] reports this is her 2nd suicide attempt in the past two weeks. Her drug screen was positive for methamphetamine and amphetamines. Diagnosis/presenting symptoms: Depression , suicide attempt, unable to care for self Assessment: What has happened this shift: The patient was up at change of shift and asking for nicotine gum. Depressed mood and sad affect. Ate meals with others, went to morning group but slept during afternoon group. Having suicidal thoughts of cuting here wrists. Still delusional regarding dying and being able to then end up anywhere she desires as a spirit. Medication compliant. Cooperative and soft spoken. S/I, H/I: feeling suicidal and thinks of cutting wrists A/VH: denies Sleep: napped today ADL's: independent Group attendance: x1 Were meds taken: yes Any med S/E no Mental Status Exam Appearance: mildly disheveled Eye contact: good Behavior: cooperative Speech: clear and soft Mood: depressed Affect: sad Thought process: delusions Thought Content: depressive Cognition: a&ox4 Insight: poor Judgment: poor Interventions PRN's used: none Therapeutic interventions: 1:1 assessment, therapeutic listening reassurance and recognition. Restraints/seclusion/emergency medication: none Justification of Continued Inpatient Treatment: Treatment of depression pt has suicidal Ideation, delusions
[2018-05-13 19:59] VITALS: BP 121/79
[2018-05-13] MEDS: aripiprazole 5mg tablet PO SCH (20:26)
--- NOTE | 2018-05-13 20:45 | NUR ---
NURSING PROGRESS NOTE Chief Complaint: Depression, Suicide attempt Legal hold: 5150 Client on involuntary status for DTS Report received from (none, same nurse) Why are they here: She was found on the of this month unresponsive by [place] law enforcement officers in a local motel room after taking an unknown amount of trazodone and propranolol in a suicide attempt. Prior to taking the overdose she wrote a long rambling angry, paranoid suicide letter addressed to "whom it may concern." She was taken to [facility] where she was intubated and stabilized in the ICU. [facility] reports this is her 2nd suicide attempt in the past two weeks. Her drug screen was positive for methamphetamine and amphetamines. Diagnosis/presenting symptoms: Depression , suicide attempt, unable to care for self Assessment: What has happened this shift: The patient was pleasant and cooperative. Depressed mood, tired and sad affect. Med compliant. Eating well. Still having thoughts of suicide by cutting. No changes since last shift. Some delusional thoughts about the spirit world and dying. After dinner layed down on bed, got up for snack at 1999, took night meds and then went back to bed and fell asleep. S/I, H/I: feeling suicidal and thinks of cutting wrists A/VH: denies Sleep: sleeping ADL's: independent Group attendance: no groups this shift Were meds taken: yes Any med S/E no Mental Status Exam Appearance: mildly disheveled Eye contact: good Behavior: cooperative Speech: clear and soft Mood: depressed Affect: sad Thought process: delusions Thought Content: depressive Cognition: a&ox4 Insight: poor Judgment: poor Interventions PRN's used: nicotine gum Therapeutic interventions: 1:1 assessment, therapeutic listening reassurance and recognition. Restraints/seclusion/emergency medication: none Justification of Continued Inpatient Treatment: Treatment of depression pt has suicidal Ideation, delusions
[2018-05-14 07:30] VITALS: BP 134/89
[2018-05-14] MEDS: haloperidol 1mg tablet PO SCH ×2 (07:42→18:22)
[2018-05-14] MEDS: nicotine 21mg patch - 24 hr TD SCH (07:46)
[2018-05-14] MEDS: nicotine prolacrilex 2mg gum BC PRN ×4 (08:41→19:14)
--- NOTE | 2018-05-14 17:12 | NUR ---
NURSING PROGRESS NOTE Chief Complaint: Depression, Suicide attempt Legal hold: 5150 Client on involuntary status for DTS Report received from ROMIE Herron with use of SBAR . Why are they here: She was found on the of this month unresponsive by [place] law enforcement officers in a local motel room after taking an unknown amount of trazodone and propranolol in a suicide attempt. Prior to taking the overdose she wrote a long rambling angry, paranoid suicide letter addressed to "whom it may concern." She was taken to [facility] where she was intubated and stabilized in the ICU. [facility] reports this is her 2nd suicide attempt in the past two weeks. Her drug screen was positive for methamphetamine and amphetamines. Diagnosis/presenting symptoms: Depression , suicide attempt, unable to care for self Assessment: What has happened this shift: Received patient resting in bed. Depressed mood and sad affect. Appears irritated with some other clients and glares at them. Spent time in group room watching tv. Took naps throughout day. Asked for nicotine gum in afternoon. Ate meals with others, went to afternoon group. She remains a danger to self with +SI and remains delusional regarding dying and being able to then end up anywhere she desires as a spirit. Medication compliant. Cooperative and soft spoken. S/I, H/I: feeling suicidal and thinks of cutting wrists A/VH: denies Sleep: napped today ADL's: independent Group attendance: x1 Were meds taken: yes Any med S/E no Mental Status Exam Appearance: mildly disheveled Eye contact: good Behavior: cooperative Speech: clear and soft Mood: depressed Affect: sad Thought process: delusions Thought Content: depressive Cognition: a&ox4 Insight: poor Judgment: poor Interventions PRN's used: Yes-nicotine gum Therapeutic interventions: 1:1 assessment, therapeutic listening reassurance and recognition; Maintained therapeutic milieu. Restraints/seclusion/emergency medication: none Justification of Continued Inpatient Treatment: Treatment of depression pt has suicidal Ideation, delusions.
[2018-05-14 19:19] VITALS: BP 147/105
[2018-05-14] MEDS: cloNIDine 0.1 mg tablet PO SCH ×2 (19:58→21:14)
[2018-05-14] MEDS: aripiprazole 5mg tablet PO SCH (19:58)
--- NOTE | 2018-05-14 23:32 | NUR ---
NURSING PROGRESS NOTE Chief Complaint: Depression, Suicide attempt Legal hold: 5150 Client on involuntary status for DTS Report received from ROMIE Presley with use of SBAR: Why are they here: She was found on the of this month unresponsive by [place] law enforcement officers in a local motel room after taking an unknown amount of trazodone and propranolol in a suicide attempt. Prior to taking the overdose she wrote a long rambling angry, paranoid suicide letter addressed to "whom it may concern." She was taken to [facility] where she was intubated and stabilized in the ICU. [facility] reports this is her 2nd suicide attempt in the past two weeks. Her drug screen was positive for methamphetamine and amphetamines. Diagnosis/presenting symptoms: Depression , suicide attempt, unable to care for self Assessment: What has happened this shift: Received patient lying awake in bed. When questioned how she was doing patient stated not good when questioned further, patient related to staff that she did not like her life here in this hospital but that she was enduring it to get to rehab. Patient had flat/angry affect. Patient seemed to hint at suicidal thoughts, but would not clarify. Patient met with a little later and seemed to be less angry and she had signed in voluntarily. Patient return to bed after sitting up and watching a little TV. She fell asleep around 2230. S/I, H/I: feeling suicidal and thinks of cutting wrists A/VH: denies Sleep: pt asleep by 2215 ADL's: independent Group attendance: x1 Were meds taken: yes Any med S/E no Mental Status Exam Appearance: mildly disheveled Eye contact: good Behavior: cooperative Speech: clear and soft Mood: depressed Affect: sad Thought process: delusions Thought Content: depressive Cognition: a&ox4 Insight: poor Judgment: poor Interventions PRN's used: Yes-nicotine gum Therapeutic interventions: 1:1 assessment, therapeutic listening reassurance and recognition; Maintained therapeutic milieu. Restraints/seclusion/emergency medication: none Justification of Continued Inpatient Treatment: Treatment of depression pt has suicidal Ideation, delusions.
[2018-05-15] MEDS: nicotine prolacrilex 2mg gum BC PRN ×4 (05:24→17:05)
[2018-05-15] MEDS: cloNIDine 0.1 mg tablet PO SCH ×3 (07:46→20:59)
[2018-05-15] MEDS: haloperidol 1mg tablet PO SCH ×2 (07:46→18:50)
[2018-05-15] MEDS: nicotine 21mg patch - 24 hr TD SCH (07:46)
[2018-05-15 08:00] VITALS: BP 137/88
--- NOTE | 2018-05-15 09:56 | NUR ---
NURSING PROGRESS NOTE Chief Complaint: Depression, two recent suicide attempts Legal hold: voluntary Client on voluntary status for DTS Report received from ROMIE Geller with use of SBAR . Why are they here: She was found on the of this month unresponsive by [place] law enforcement officers in a local motel room after taking an unknown amount of trazodone and propranolol in a suicide attempt. Prior to taking the overdose she wrote a long rambling angry, paranoid suicide letter addressed to "whom it may concern." She was taken to [facility] where she was intubated and stabilized in the ICU. [facility] reports this is her 2nd suicide attempt in the past two weeks. Her drug screen was positive for methamphetamine and amphetamines. Diagnosis/presenting symptoms: Depression , suicide attempt, unable to care for self, poor insight and judgement Assessment: What has happened this shift: Patient isolates to her room except for meals. She gives short, alonso answers. Attempted to do medication education. Patient interrupted and stated "I don't know need to know what medications I am taking. The doctors know what they are doing." Attempted one on one assessment. Patient cut this nurse offf and walked away. She has kept a hoodie pulled down over her head during the day. S/I, H/I: feeling suicidal and thinks of cutting wrists A/VH: denies Sleep: napped today ADL's: independent, showered today Group attendance: x1 Were meds taken: yes Any med S/E no Mental Status Exam Appearance: disheveled, glares at this nurse and other patients Eye contact: good Behavior: guarded Speech: clear Mood: depressed Affect: blunted Thought process: counterfactual, denies suicide attemtp, denies having pneumonia, denies taking levaquin Thought Content: hopeless Cognition: a&ox4 Insight: poor Judgment: poor Interventions PRN's used: Yes-nicotine gum Therapeutic interventions: 1:1 assessment, therapeutic listening reassurance and recognition; Maintained therapeutic milieu. Medication education Restraints/seclusion/emergency medication: none Justification of Continued Inpatient Treatment: Treatment of depression pt has suicidal Ideation, delusions and two recent suicide attempts and needs medication stabilization
[2018-05-15 19:58] VITALS: BP 113/71
[2018-05-15] MEDS: aripiprazole 5mg tablet PO SCH (21:00)
--- NOTE | 2018-05-16 03:07 | NUR ---
NURSING PROGRESS NOTE Chief Complaint: Depression, Suicide attempt Legal hold: 5150 Client on involuntary status for DTS Report received from ROMIE Slater with use of SBAR: Why are they here: She was found on the of this month unresponsive by [place] law enforcement officers in a local motel room after taking an unknown amount of trazodone and propranolol in a suicide attempt. Prior to taking the overdose she wrote a long rambling angry, paranoid suicide letter addressed to "whom it may concern." She was taken to [facility] where she was intubated and stabilized in the ICU. [facility] reports this is her 2nd suicide attempt in the past two weeks. Her drug screen was positive for methamphetamine and amphetamines. Diagnosis/presenting symptoms: Depression , suicide attempt, unable to care for self Assessment: What has happened this shift: Patient lying awake in bed at start of shift. When questioned how she was feeling patient "I don't want to talk about it, I don't want to talk about anything. You're excused." Encouraged to let staff know if she needed anything. Pt refused assessment would not even allow her lungs to be listened to. At 20:42 pt refused HS meds "I'll take them later" After some discussion pt agreed to take them at 21:00 which she did. S/I, H/I: unable to assess A/VH: unable to assess Sleep: sleeping at this time ADL's: independent Group NA Were meds taken: yes Any med S/E no Mental Status Exam Appearance: mildly disheveled Eye contact: good Behavior: resistive hostile Speech: clear and soft Mood: unable to assess Affect: sad Thought process: unable to assess Thought Content: unable to assess Cognition: a&ox4 Insight: poor Judgment: poor Interventions PRN's used: no Therapeutic interventions: 1:1 assessment refused, therapeutic listening reassurance and recognition; Maintained therapeutic milieu. Restraints/seclusion/emergency medication: none Justification of Continued Inpatient Treatment: Treatment of depression pt has suicidal Ideation, delusions.
[2018-05-16] MEDS: haloperidol 1mg tablet PO SCH (07:01)
[2018-05-16] MEDS: nicotine 21mg patch - 24 hr TD SCH (07:01)
[2018-05-16] MEDS: cloNIDine 0.1 mg tablet PO SCH ×3 (07:01→20:52)
[2018-05-16] MEDS: nicotine prolacrilex 2mg gum BC PRN ×3 (07:01→21:37)
[2018-05-16 08:00] VITALS: BP 109/67
--- NOTE | 2018-05-16 12:48 | NUR ---
Good appetite. H/o gastric bypass though eating 75-100% of regular diet. Recommend: 1. Continue regular diet 2. Weekly weights Addendum: 05/16/18 at [address] Amended: Links added.
--- NOTE | 2018-05-16 13:01 | NUR ---
NURSING PROGRESS NOTE Chief Complaint: Depression, two recent suicide attempts Legal hold: voluntary Client on voluntary status for DTS Report received from ROMIE Sosa with use of SBAR . Why are they here: She was found on the of this month unresponsive by [place] law enforcement officers in a local motel room after taking an unknown amount of trazodone and propranolol in a suicide attempt. Prior to taking the overdose she wrote a long rambling angry, paranoid suicide letter addressed to "whom it may concern." She was taken to [facility] where she was intubated and stabilized in the ICU. [facility] reports this is her 2nd suicide attempt in the past two weeks. Her drug screen was positive for methamphetamine and amphetamines. Diagnosis/presenting symptoms: Depression , suicide attempt, unable to care for self, poor insight and judgement Assessment: What has happened this shift: Patient was up at change of shift. She took all of her medications without incident. She was up on the unit socializing with other patients. At one point in the morning after her shower she was walking down the lu stating "haters, haters, haters" This nurse went to her room for one on one assessment. Patient states she is suicidal and has a plan to cut her wrists. She says this matter of factly with no emotion. She does not feel that her medications are working adequately and wants to be put on Adderall or Vyvanse. Later in the day she asks to switch rooms and move in to another room. The roommate she previously had is not showering. She attempts to alber her boyfriend Yang who she hasn't seen for awhile and smiles while calling him. Her affect is flat most of the day. S/I, H/I: feeling suicidal and thinks of cutting wrists A/VH: denies Sleep: napped today ADL's: independent, showered today Group attendance: x2 Were meds taken: yes Any med S/E no Mental Status Exam Appearance: clean and neat Eye contact: good Behavior: friendly, pleasant Speech: clear Mood: suicidal Affect: blunted Thought process: disorganized Thought Content: Talks about reuniting with her boyfriend Yang, cutting wrists Cognition: a&ox4 Insight: poor Judgment: poor Interventions PRN's used: Yes-nicotine gum Therapeutic interventions: 1:1 assessment, therapeutic listening reassurance and recognition; Maintained therapeutic milieu. Medication education Restraints/seclusion/emergency medication: none Justification of Continued Inpatient Treatment: Treatment of depression pt has suicidal Ideation, delusions and two recent suicide attempts and needs medication stabilization
[2018-05-16] MEDS: haloperidol 10mg/5ml UD oral solution PO SCH (19:43)
[2018-05-16 20:00] VITALS: BP 144/83
[2018-05-16] MEDS: aripiprazole 5mg tablet PO SCH (20:52)
--- NOTE | 2018-05-17 04:14 | NUR ---
NURSING PROGRESS NOTE Chief Complaint: Depression, two recent suicide attempts Legal hold: voluntary Client on voluntary status for DTS Report received from ROMIE Slater with use of SBAR . Why are they here: She was found on the of this month unresponsive by [place] law enforcement officers in a local motel room after taking an unknown amount of trazodone and propranolol in a suicide attempt. Prior to taking the overdose she wrote a long rambling angry, paranoid suicide letter addressed to "whom it may concern." She was taken to [facility] where she was intubated and stabilized in the ICU. [facility] reports this is her 2nd suicide attempt in the past two weeks. Her drug screen was positive for methamphetamine and amphetamines. Diagnosis/presenting symptoms: Depression , suicide attempt, unable to care for self, poor insight and judgement Assessment: Pt in hallway at start of shift, she immediately approached and apologized for her behavior previous shift. Thanked pt for apologizing and reassured her that it was not taken personally. Rest of shift pt pleasant and cooperative in contrast to last NOC shift. Pt said she is feels anxious at times but uses some meditation techniques that are helpful to cope. She reports visual hallucinations "energy spots" and sometimes she sees "shadow people." She reports this hallucinations are not frightening although sometimes the shadow people startle her. Pt is hoping to go to [place] at discharge. S/I, H/I: feeling suicidal and thinks of cutting wrists A/VH: yes both Sleep: sleeping at this time ADL's: independent, Group attendance: Were meds taken: yes Any med S/E no Mental Status Exam Appearance: clean and neat Eye contact: good Behavior: friendly, pleasant Speech: clear Mood: suicidal Affect: blunted Thought process: disorganized Thought Content: Talks about reuniting with her boyfriend Yang, cutting wrists Cognition: a&ox4 Insight: poor Judgment: poor Interventions PRN's used: Yes-nicotine gum Therapeutic interventions: 1:1 assessment, therapeutic listening reassurance and recognition; Maintained therapeutic milieu. Medication education Restraints/seclusion/emergency medication: none Justification of Continued Inpatient Treatment: Treatment of depression pt has suicidal Ideation, delusions and two recent suicide attempts and needs medication stabilization
[2018-05-17] MEDS: nicotine 21mg patch - 24 hr TD SCH (07:34)
[2018-05-17] MEDS: cloNIDine 0.1 mg tablet PO SCH ×3 (07:34→21:45)
[2018-05-17 08:00] VITALS: BP 108/62
[2018-05-17] MEDS: haloperidol 10mg/5ml UD oral solution PO SCH ×2 (08:08→18:00)
[2018-05-17] MEDS ORDERED: lisdexamfetamine dimesylate 10mg capsule PO ONE (10:00)
[2018-05-17] MEDS: nicotine prolacrilex 2mg gum BC PRN ×3 (10:37→17:16)
[2018-05-17] MEDS ORDERED: lisdexamfetamine dimesylate 40mg capsule PO ONE (11:35)
--- NOTE | 2018-05-17 13:27 | NUR ---
NURSING PROGRESS NOTE Chief Complaint: Depression, two recent suicide attempts Legal hold: voluntary Client on voluntary status for DTS Report received from ROMIE Sosa with use of SBAR . Why are they here: She was found on the of this month unresponsive by [place] law enforcement officers in a local motel room after taking an unknown amount of trazodone and propranolol in a suicide attempt. Prior to taking the overdose she wrote a long rambling angry, paranoid suicide letter addressed to "whom it may concern." She was taken to [facility] where she was intubated and stabilized in the ICU. [facility] reports this is her 2nd suicide attempt in the past two weeks. Her drug screen was positive for methamphetamine and amphetamines. Diagnosis/presenting symptoms: Depression , suicide attempt, unable to care for self, poor insight and judgement Assessment: What has happened this shift: Patient up at change of shift. She showered. She took all medications without incident. At breakfast she was overheard telling a male patient she would give him oral sex. Later an aide saw her in the bathroom with that male patient and it looked like they were being intimate. Later the male patient referred to her as his girlfriend. Patient is struggling with some impulsivity. She was started on Vyvanse today. She attended all groups and was pleasant with a bright affect. S/I, H/I: feeling suicidal and thinks of cutting wrists A/VH: denies Sleep: napped today ADL's: independent, showered today Group attendance: x2 Were meds taken: yes Any med S/E no Mental Status Exam Appearance: clean and neat Eye contact: good Behavior: friendly, pleasant Speech: clear Mood: upbeat Affect: blunted Thought process: disorganized Thought Content: "I just want to have fun" Cognition: a&ox4 Insight: poor Judgment: poor Interventions PRN's used: Yes-nicotine gum Therapeutic interventions: 1:1 assessment, therapeutic listening reassurance and recognition; Maintained therapeutic milieu. Medication education Restraints/seclusion/emergency medication: none Justification of Continued Inpatient Treatment: Treatment of depression pt has suicidal Ideation, delusions and two recent suicide attempts and needs medication stabilization
[2018-05-17 20:00] VITALS: BP 129/77
[2018-05-17] MEDS: aripiprazole 5mg tablet PO SCH (21:45)
--- NOTE | 2018-05-18 03:55 | NUR ---
NURSING PROGRESS NOTE Chief Complaint: Depression, Suicide attempt Legal hold: 5150 Client on involuntary status for DTS Report received from ROMIE Slater with use of SBAR: Why are they here: She was found on the of this month unresponsive by [place] law enforcement officers in a local motel room after taking an unknown amount of trazodone and propranolol in a suicide attempt. Prior to taking the overdose she wrote a long rambling angry, paranoid suicide letter addressed to "whom it may concern." She was taken to [facility] where she was intubated and stabilized in the ICU. [facility] reports this is her 2nd suicide attempt in the past two weeks. Her drug screen was positive for methamphetamine and amphetamines. Diagnosis/presenting symptoms: Depression , suicide attempt, unable to care for self Assessment: What has happened this shift: Pt sitting in rec room watching TV with another pt at start of shift. Pt says she is depressed, anxious and suicidal with a plan to slit her wrists longitudinally. Incongruent with her affect which is bright and cheerful. Pt remained pleasant and cooperative all shift. She denied any hallucinations. S/I, H/I: feeling suicidal and thinks of cutting wrists A/VH: denies Sleep: pt asleep by 2214 ADL's: independent Group attendance: na Were meds taken: yes Any med S/E no Mental Status Exam Appearance: mildly disheveled Eye contact: good Behavior: cooperative Speech: clear and soft Mood: depressed Affect: sad Thought process: delusions Thought Content: depressive Cognition: a&ox4 Insight: poor Judgment: poor Interventions PRN's used: Yes-nicotine gum Therapeutic interventions: 1:1 assessment, therapeutic listening reassurance and recognition; Maintained therapeutic milieu. Restraints/seclusion/emergency medication: none Justification of Continued Inpatient Treatment: Treatment of depression pt has suicidal Ideation, delusions.
[2018-05-18 07:40] VITALS: BP 110/57
[2018-05-18] MEDS ORDERED: lisdexamfetamine dimesylate 10mg capsule PO SCH (08:00)
[2018-05-18] MEDS: nicotine 21mg patch - 24 hr TD SCH (08:08)
[2018-05-18] MEDS: cloNIDine 0.1 mg tablet PO SCH ×3 (08:08→21:00)
[2018-05-18] MEDS: lisdexamfetamine dimesylate 40mg capsule PO SCH (08:09)
[2018-05-18] MEDS: haloperidol 10mg/5ml UD oral solution PO SCH ×2 (08:11→18:08)
[2018-05-18] MEDS: nicotine prolacrilex 2mg gum BC PRN ×3 (11:02→16:09)
[2018-05-18] MEDS ORDERED: mag hydrox/Alum hydrox/simeth 30ml oral suspension PO PRN (14:40)
[2018-05-18] MEDS: pantoprazole 40mg Tablet.DR PO SCH (16:03)
--- NOTE | 2018-05-18 17:36 | NUR ---
NURSING PROGRESS NOTE Chief Complaint: Depression, two recent suicide attempts Legal hold: voluntary Client on voluntary status for DTS Report received from ROMIE Sosa with use of SBAR . Why are they here: She was found on the of this month unresponsive by [place] law enforcement officers in a local motel room after taking an unknown amount of trazodone and propranolol in a suicide attempt. Prior to taking the overdose she wrote a long rambling angry, paranoid suicide letter addressed to "whom it may concern." She was taken to [facility] where she was intubated and stabilized in the ICU. [facility] reports this is her 2nd suicide attempt in the past two weeks. Her drug screen was positive for methamphetamine and amphetamines. Diagnosis/presenting symptoms: Depression , suicide attempt, unable to care for self, poor insight and judgement Assessment: What has happened this shift: Patient up at change of shift. She showered and groomed well. She took all medications without incident. Tolerating new medication/Vyvanse well and w/o undesirable effects. Made several personal phone calls today and maintained a pleasant mood and bright affect. She attended groups and interacted with others appropriately. S/I, H/I: Feelings of suicide are present when questioned. A/VH: denies Sleep: Rested in bed at times. Active on unit ADL's: independent, showered today Group attendance: Yes Were meds taken: yes Any med S/E no Mental Status Exam Appearance: clean and neat Eye contact: good Behavior: friendly, pleasant Speech: clear Mood: upbeat Affect: blunted Thought process: disorganized Thought Content: Focused on nicotine Cognition: A&Ox4 Insight: poor Judgment: poor Interventions PRN's used: Yes-nicotine gum X3 Therapeutic interventions: 1:1 assessment, therapeutic listening reassurance and recognition; Maintained therapeutic milieu. Medication education Restraints/seclusion/emergency medication: none Justification of Continued Inpatient Treatment: Treatment of depression pt has suicidal Ideation, delusions and two recent suicide attempts and needs medication stabilization
[2018-05-18 20:11] VITALS: BP 99/61
[2018-05-18] MEDS: aripiprazole 5mg tablet PO SCH (21:17)
--- NOTE | 2018-05-19 04:19 | NUR ---
Nursing Note: Chief Complaint: Depression Legal hold: Voluntary Client on voluntary DTS Report received from nurse with use of SBAR: ROMIE Presley Why are they here: Pt. was admitted to [facility] from [facility] in [place], after being intubated, following a suicide attempt to overdose on Trazodone and Propranolol. Pt. was staying in a hotel room in [place] after recently being discharged from [facility] and was trying to get back to her apartment in [place]. Pt. stated, "If I kill myself, I believe I could be resurrected in [place]." She believes she has a spiritual connection with the and has previously reported A/H. Pt. is voluntary. Diagnosis/presenting symptoms: Pt. continues to report S/I with a plan to slit her wrists and presents as depressed and withdrawn this shift, isolating in her room. Assessment What has happened this shift: Pt. laying in bed in a dark room at beginning of the shift, she continued to isolate here throughout the shift. This typewriter assembler awoke pt. for HS medications, she was cooperative with their administration, however remained withdrawn and guarded. Attempted to complete 1:1 at bedside, pt. continues to report S/I with a plan to slit her wrists and presents as depressed and fatigued. Held scheduled Clonidine per decreased BP, outside of given parameters, will endorse to AM shift. Obtained weekly weight this shift as ordered, weight decreased and pt. reports somewhat decreased appetite, will endorse to AM shift and continue to monitor. S/I, H/I: Continues to report S/I with a plan to slit her wrists A/VH: Denies Sleep: Appears to be sleeping well ADL's: Independent, showered today Group attendance: Given in report that pt. attended groups today Were meds taken: Held Clonidine per decreased BP, outside of given parameters, will endorse to AM shift Any med S/E: Not Mental Status Exam Appearance: Neat and well dressed in hospital attire. Eye contact: Fair Behavior: Cooperative, but fatigued and withdrawn Speech:Soft, WNL Mood: Withdrawn Affect: Constricted Thought process: Poverty of thought in regard to mental illness Thought Content: Continued preoccupation with suicide and possibly some delusions Cognition: A&O Insight: Poor Judgment: Poor to fair Interventions PRN's used: None Therapeutic interventions: Introduced self and established rapport, provided active listening, maintained a safe and therapeutic environment, established contract for safety, encouraged independent participation in ADLs, and maintained Q 15 min safety checks. Restraints/seclusion/emergency medication: N/A Justification of Continued Inpatient Treatment: Pt. continues to require medication adjustments, therapeutic intervention, and interruption of crisis.
[2018-05-19] MEDS: nicotine prolacrilex 2mg gum BC PRN ×3 (06:55→15:34)
[2018-05-19] MEDS: pantoprazole 40mg Tablet.DR PO SCH (07:31)
[2018-05-19] MEDS: lisdexamfetamine dimesylate 40mg capsule PO SCH (07:31)
[2018-05-19] MEDS: nicotine 21mg patch - 24 hr TD SCH (07:32)
[2018-05-19] MEDS: cloNIDine 0.1 mg tablet PO SCH ×3 (08:05→21:00)
[2018-05-19] MEDS: haloperidol 10mg/5ml UD oral solution PO SCH ×2 (08:06→18:00)
[2018-05-19 08:44] VITALS: BP 115/76
--- NOTE | 2018-05-19 15:58 | NUR ---
NURSING PROGRESS NOTE Chief Complaint: Depression, two recent suicide attempts Legal hold: voluntary Client on voluntary status for DTS Report received from ROMIE Sosa with use of SBAR . Why are they here: She was found on the of this month unresponsive by [place] law enforcement officers in a local motel room after taking an unknown amount of trazodone and propranolol in a suicide attempt. Prior to taking the overdose she wrote a long rambling angry, paranoid suicide letter addressed to "whom it may concern." She was taken to [facility] where she was intubated and stabilized in the ICU. [facility] reports this is her 2nd suicide attempt in the past two weeks. Her drug screen was positive for methamphetamine and amphetamines. Diagnosis/presenting symptoms: Depression , suicide attempt, unable to care for self, poor insight and judgement Assessment: What has happened this shift: Patient up at change of shift. She showered and groomed well. She took all medications without incident. Tolerating new medication/Vyvanse well and w/o undesirable effects. She attended morning group and interacted with others appropriately. Slept most of the afternoon. S/I, H/I: Feelings of suicide are present when questioned. A/VH: denies Sleep: Rested in bed at times. Active on unit ADL's: independent, showered today Group attendance: Yes Were meds taken: yes Any med S/E no Mental Status Exam Appearance: clean and neat Eye contact: good Behavior: friendly, pleasant Speech: clear Mood: upbeat Affect: blunted Thought process: disorganized Thought Content: Focused on nicotine Cognition: A&Ox4 Insight: poor Judgment: poor Interventions PRN's used: Yes-nicotine gum X3 Therapeutic interventions: 1:1 assessment, therapeutic listening reassurance and recognition; Maintained therapeutic milieu. Medication education Restraints/seclusion/emergency medication: none Justification of Continued Inpatient Treatment: Treatment of depression pt has suicidal Ideation, delusions and two recent suicide attempts and needs medication stabilization
[2018-05-19 19:00] VITALS: BP 98/58
[2018-05-19] MEDS: aripiprazole 5mg tablet PO SCH (20:34)
--- NOTE | 2018-05-20 00:43 | NUR ---
Nursing Note: Chief Complaint: Depression Legal hold: Voluntary Client on voluntary DTS Report received from nurse with use of SBAR: ROMIE Fang Why are they here: Pt. was admitted to [facility] from [facility] in [place], after being intubated, following a suicide attempt to overdose on Trazodone and Propranolol. Pt. was staying in a hotel room in [place] after recently being discharged from [facility] and was trying to get back to her apartment in [place]. Pt. stated, "If I kill myself, I believe I could be resurrected in [place]." She believes she has a spiritual connection with the and has previously reported A/H. Pt. is voluntary. Diagnosis/presenting symptoms: Pt. continues to report S/I with a plan to slit her wrists, however reports her depression is a little better. Assessment What has happened this shift: Pt. laying in bed at beginning of the shift, she continued to isolate here.When questioned by this bid writer regarding her continued fatigue, states, "I get up early in the morning, so I go to bed early." Pt. cooperative with medication administration, however remains somewhat guarded. 1:1 completed at bedside, pt. continues to report S/I with a plan to slit her wrists, however reports her depression is a little better. When questioned regarding triggers that cause her to feel suicidal, she states, "I don't want to live this life." S/I, H/I: Continues to report S/I with a plan to slit her wrists A/VH: Denies Sleep: Reports she has been sleeping well ADL's: Independent Group attendance: Pt. reports she has been attending groups, however identifies her coping mechanism as, "Watching energy, and watching it go the other way." Were meds taken: Held Clonidine per decreased BP, outside of given parameters, will endorse to AM shift. Pt. refuses to have Nicotine patch removed. Any med S/E: Not Mental Status Exam Appearance: Neat and well dressed in hospital attire. Eye contact: Fair Behavior: Cooperative, continues to be fatigued Speech:Soft, WNL Mood: Pleasant, somewhat withdrawn Affect: Constricted Thought process: Poverty of thought in regard to mental illness Thought Content: Continued preoccupation with suicide and possibly some delusions (identifies her coping mechanism as, "Watching energy, and watching it go the other way.") Cognition: A&O Insight: Poor Judgment: Poor to fair Interventions PRN's used: None Therapeutic interventions: Provided active listening, maintained a safe and therapeutic environment, established contract for safety, encouraged independent participation in ADLs, and maintained Q 15 min safety checks. Restraints/seclusion/emergency medication: N/A Justification of Continued Inpatient Treatment: Pt. continues to require medication adjustments and therapeutic intervention, per on-going S/I. She requires further stabilization for safety.
[2018-05-20] MEDS: pantoprazole 40mg Tablet.DR PO SCH (07:16)
[2018-05-20] MEDS: LORazepam 0.5 MG tablet PO PRN ×2 (07:46→16:13)
[2018-05-20] MEDS: nicotine prolacrilex 2mg gum BC PRN ×3 (07:46→16:13)
[2018-05-20] MEDS: cloNIDine 0.1 mg tablet PO SCH ×2 (08:00→13:00)
[2018-05-20] MEDS: lisdexamfetamine dimesylate 40mg capsule PO SCH (08:02)
[2018-05-20] MEDS: nicotine 21mg patch - 24 hr TD SCH (08:03)
[2018-05-20 08:04] VITALS: BP 128/73
[2018-05-20] MEDS: haloperidol 10mg/5ml UD oral solution PO SCH ×2 (08:05→18:06)
--- NOTE | 2018-05-20 16:41 | NUR ---
RN Nursing Note: Chief Complaint: Depression, two recent suicide attempts Legal hold: Voluntary Client on voluntary status for DTS Report received from ROMIE Chester w/use of SBAR . Why are they here: She was found on the of this month unresponsive by [place] law enforcement officers in a local motel room after taking an unknown amount of trazodone and propranolol in a suicide attempt. Prior to taking the overdose she wrote a long rambling angry, paranoid suicide letter addressed to "whom it may concern." She was taken to [facility] where she was intubated and stabilized in the ICU. [facility] reports this is her 2nd suicide attempt in the past two weeks. Her drug screen was positive for methamphetamine and amphetamines. Diagnosis/presenting symptoms: Depression , suicide attempt, unable to care for self, poor insight and judgement Assessment: What has happened this shift: 0655 pt asked for her Protonix, 0725 pt asked for nicotine gum and Ativan, 0755 pt asked for her Vyvanse. Pt continued to ask for meds throughout the shift. S/I, H/I: Feelings of suicide are present when questioned. A/VH: denies Sleep: Up and down from her bed to the day room on and off throughout the day ADL's: independent Group attendance: Y Were Meds taken: y Any med S/E: None noted or observed Mental Status Exam Appearance: WNL's, clean Eye contact: Fair Behavior: Patient Speech: Clear Mood: Smiling throughout the day Affect: Blunted Thought process: Disorganized Thought Content: Focused on nicotine Cognition: A/Ox4 Insight: poor Judgment: poor Interventions PRN's used: Yes-nicotine gum X2; Ativan Therapeutic interventions: 1:1 assessment, provided active listening; encouraged participation in ADL's and groups; provided med education; administered meds and monitored for SE's. maintained q 15min safety checks Restraints/seclusion/emergency medication: N/A Justification of Continued Inpatient Treatment: Medication stabilization DT recent suicide attempts or pt will be at risk for re-hospitalization.
[2018-05-20 19:30] VITALS: BP 107/62
[2018-05-20] MEDS: aripiprazole 5mg tablet PO SCH (20:36)
[2018-05-20] MEDS: zolpidem 5mg tablet PO PRN (20:36)
--- NOTE | 2018-05-21 01:23 | NUR ---
RN Nursing Note: Chief Complaint: Depression, two recent suicide attempts Legal hold: Voluntary Client on voluntary status for DTS Report received from ROMIE Boyd w/use of SBAR . Why are they here: She was found on the of this month unresponsive by [place] law enforcement officers in a local motel room after taking an unknown amount of trazodone and propranolol in a suicide attempt. Prior to taking the overdose she wrote a long rambling angry, paranoid suicide letter addressed to "whom it may concern." She was taken to [facility] where she was intubated and stabilized in the ICU. [facility] reports this is her 2nd suicide attempt in the past two weeks. Her drug screen was positive for amphetamines. Diagnosis/presenting symptoms: Depression , suicide attempt, unable to care for self, poor insight and judgement Assessment: What has happened this shift: Patient is sleeping on her left side in bed at shift change. Except for getting up to go to the bathroom this patient isolates in her room in bed. The patient is well oriented and speaks freely to this chief writer. When asked how she is feeling the patient replies, "my night is alright but I'm bored. I'm depressed, I want to go home or to the [place]." Patient states she is depressed. "I want to commit suicide by cutting my wrists. Patient states she uses meth because "It helps my ADD." This patient is advised that she is in a safe place. S/I, H/I: Feelings of suicide are present when questioned. A/VH: denies Sleep:Patient goes to sleep easily. ADL's: Independent Group attendance: No group on nights. Were Meds taken: Patient is medication compliant. Any med S/E: None noted or observed Mental Status Exam Appearance: WNL's, clean. Eye contact: Fair Behavior: Patient Speech: Clear Mood: Pleasant. Affect: Blunted Thought process: Disorganized Thought Content: Focused on nicotine Cognition: A/Ox4 Insight: poor Judgment: poor Interventions PRN's used: No. Therapeutic interventions: 1:1 assessment, provided active listening; encouraged participation in ADL's and groups; provided med education; administered meds and monitored for SE's. maintained q 15min safety checks Restraints/seclusion/emergency medication: N/A Justification of Continued Inpatient Treatment: Medication stabilization DT recent suicide attempts or pt will be at risk for re-hospitalization.
[2018-05-21] MEDS: pantoprazole 40mg Tablet.DR PO SCH (07:59)
[2018-05-21] MEDS ORDERED: lisdexamfetamine dimesylate 10mg capsule PO SCH (08:00)
[2018-05-21] MEDS: lisdexamfetamine dimesylate 40mg capsule PO SCH (08:00)
[2018-05-21] MEDS: haloperidol 10mg/5ml UD oral solution PO SCH ×2 (08:01→17:31)
[2018-05-21] MEDS: nicotine 21mg patch - 24 hr TD SCH (08:01)
[2018-05-21 08:38] VITALS: BP 115/82
[2018-05-21] MEDS: nicotine prolacrilex 2mg gum BC PRN ×3 (08:49→16:36)
[2018-05-21] MEDS ORDERED: aripiprazole 400mg suspension ER syringe IM ONE ×2 (10:00→20:00)
[2018-05-21] MEDS ORDERED: aripiprazole 400mg suspension ER syringe IM SCH (10:00)
[2018-05-21] MEDS: hydrOXYzine 25 MG tablet PO PRN (11:41)
--- NOTE | 2018-05-21 12:09 | NUR ---
Med Note: Pt requested that she get her injection tonight DT the injection making her tired and "I would not be able to participate tin the programs today."
--- NOTE | 2018-05-21 17:09 | NUR ---
RN Nursing Note: Chief Complaint: Depression, two recent suicide attempts Legal hold: Voluntary Client on voluntary status for DTS Report received from ROMIE Beatty w/use of SBAR . Why are they here: She was found on the of this month unresponsive by [place] law enforcement officers in a local motel room after taking an unknown amount of trazodone and propranolol in a suicide attempt. Prior to taking the overdose she wrote a long rambling angry, paranoid suicide letter addressed to "whom it may concern." She was taken to [facility] where she was intubated and stabilized in the ICU. [facility] reports this is her 2nd suicide attempt in the past two weeks. Her drug screen was positive for methamphetamine and amphetamines. Diagnosis/presenting symptoms: Depression, suicide attempt, unable to care for self, poor insight and judgment Assessment: What has happened this shift: Pt has been calm and cooperative. She is smiling throughout the day. She offers to help others. Pt moved to another room due to conflict with roommate early this morning. S/I, H/I: Feelings of suicide are present when questioned. A/VH: denies Sleep: Up and down from her bed to the day room on and off throughout the day ADL's: independent Group attendance: Y Were Meds taken: y Any med S/E: None noted or observed Mental Status Exam Appearance: WNL's, clean Eye contact: Fair Behavior: Patient Speech: Clear Mood: Smiling throughout the day Affect: Blunted Thought process: Disorganized Thought Content: Focused on nicotine Cognition: A/Ox4 Insight: poor Judgment: poor Interventions PRN's used: Yes-nicotine gum X2; Therapeutic interventions: 1:1 assessment, provided active listening; encouraged participation in ADL's and groups; provided med education; administered meds and monitored for SE's. maintained q 15min safety checks Restraints/seclusion/emergency medication: N/A Justification of Continued Inpatient Treatment: Medication stabilization DT recent suicide attempts at risk for re-hospitalization.
[2018-05-21 19:00] VITALS: BP 97/49
[2018-05-21] MEDS: magnesium hydroxide 30ml (MOM) UD suspension PO PRN (21:10)
[2018-05-21] MEDS: aripiprazole 5mg tablet PO SCH (21:11)
[2018-05-21] MEDS: zolpidem 5mg tablet PO PRN (21:11)
--- NOTE | 2018-05-21 23:49 | NUR ---
RN Nursing Note: Chief Complaint: Depression, two recent suicide attempts Legal hold: Voluntary Client on voluntary status for DTS Report received from ROMIE Boyd w/use of SBAR . Why are they here: She was found on the of this month unresponsive by [place] law enforcement officers in a local motel room after taking an unknown amount of trazodone and propranolol in a suicide attempt. Prior to taking the overdose she wrote a long rambling angry, paranoid suicide letter addressed to "whom it may concern." She was taken to [facility] where she was intubated and stabilized in the ICU. [facility] reports this is her 2nd suicide attempt in the past two weeks. Her drug screen was positive for amphetamines. Diagnosis/presenting symptoms: Depression, suicide attempt, unable to care for self, poor insight and judgment Assessment: What has happened this shift: Pt has been calm and cooperative. She is smiling throughout the day. She offers to help others. Pt moved to another room due to conflict with roommate early this morning. S/I, H/I: Feelings of suicide are present when questioned. A/VH: Denies Sleep: Sleeping well. ADL's: Independent Group attendance: No group on fast food shift lead. Were Meds taken: Patient is medication compliant. Any med S/E: None noted or observed Mental Status Exam Appearance: WNL's, clean Eye contact: Fair Behavior: Patient Speech: Clear Mood: Upbeat Affect: Normal Thought process: Linear Thought Content: Focused on nicotine Cognition: A/Ox4 Insight: Poor Judgment: Poor Interventions PRN's used: None Therapeutic interventions: 1:1 assessment, provided active listening; encouraged participation in ADL's and groups; provided med education; administered meds and monitored for SE's. maintained q 15min safety checks Restraints/seclusion/emergency medication: N/A Justification of Continued Inpatient Treatment: Medication stabilization DT recent suicide attempts at risk for re-hospitalization. Addendum: 05/22/18 at 0019 by Rogerio Mcfarlane RN What happened this shift: Patient ambulating halls and then settled into her room after shift change. 1:1 Assessment: Patient talks freely with this service writer. Her chief complaint is depression. Patient states she still feels suicidal, her plan is cutting herself. Patient denies hallucinations, she denies voices. Patient has not had a bowel movement in days. Milk of Magnesia will be given. Patient states her appetite is decreased, she ate fifty percent of her dinner. Her thought process is linear. This patient has a goal of getting into the [facility]. Patient understands that she is in a safe place. Q15 minute rounding will be continued for patient safety.
[2018-05-22] MEDS: nicotine prolacrilex 2mg gum BC PRN ×2 (06:48→11:28)
[2018-05-22] MEDS: pantoprazole 40mg Tablet.DR PO SCH (06:48)
[2018-05-22 07:00] VITALS: BP 115/78
[2018-05-22] MEDS: haloperidol 10mg/5ml UD oral solution PO SCH ×2 (08:05→18:00)
[2018-05-22] MEDS: lisdexamfetamine dimesylate 40mg capsule PO SCH (08:05)
[2018-05-22] MEDS: nicotine 21mg patch - 24 hr TD SCH (08:06)
[2018-05-22 08:50] VITALS: BP 115/78
[2018-05-22] MEDS: magnesium hydroxide 30ml (MOM) UD suspension PO PRN (11:44)
--- NOTE | 2018-05-22 16:49 | NUR ---
RN Progress Note: Chief Complaint: Depression, two recent suicide attempts Legal hold: Voluntary Client on voluntary status for DTS Report received from ROMIE Beatty with use of SBAR. Why are they here: She was found on the of this month unresponsive by [place] law enforcement officers in a local motel room after taking an unknown amount of trazodone and propranolol in a suicide attempt. Prior to taking the overdose she wrote a long rambling angry, paranoid suicide letter addressed to "whom it may concern." She was taken to [facility] where she was intubated and stabilized in the ICU. [facility] reports this is her 2nd suicide attempt in the past two weeks. Her drug screen was positive for methamphetamine and amphetamines. Diagnosis/presenting symptoms: Mood disorder. Personality Disorder. Assessment: What has happened this shift: Patient states that she is feeling less depressed. She was smiling during the conversation. She discussed her roommate situation situation which does not sound like a healthy environment because of drug use. She would like to get a studio and move in by herself. S/I, H/I: Pt. confirms that she is still a little suicidal. A/VH: denies Sleep: Pt. awake during daytime. ADL's: independent Group attendance: Yes Were Meds taken: yes Any med S/E: None noted or observed Mental Status Exam Appearance: Tall blonde female wearing scrubs. Clean and neat. Eye contact: Fair Behavior: Calm and cooperative. Speech: Clear Mood: Improving depression. Affect: Blunted Thought process: Goal oriented, linear. Thought Content: Maintaining sobriety, housing. Cognition: A/Ox4 Insight: Fair. Judgment: Fair. Interventions PRN's used: nicotine gum Therapeutic interventions: 1:1 to assess for severity of symptoms, provided active listening; encouraged participation in ADL's and groups, maintained q 15min safety checks Restraints/seclusion/emergency medication: N/A Justification of Continued Inpatient Treatment: Patient has had two recent suicide attempts. Unless patient is fully stabilized, she would be a DTS.
[2018-05-22 19:50] VITALS: BP 156/109
[2018-05-22] MEDS: aripiprazole 5mg tablet PO SCH (20:18)
[2018-05-22] MEDS: zolpidem 5mg tablet PO PRN (22:12)
[2018-05-22] MEDS: hydrOXYzine 25 MG tablet PO PRN (23:08)
--- NOTE | 2018-05-23 02:41 | NUR ---
RN Progress Note: Chief Complaint: Depression, two recent suicide attempts Legal hold: Voluntary Client on voluntary status for DTS Report received from ROMIE Dickerson with use of SBAR. Why are they here: She was found on the of this month unresponsive by [place] law enforcement officers in a local motel room after taking an unknown amount of trazodone and propranolol in a suicide attempt. Prior to taking the overdose she wrote a long rambling angry, paranoid suicide letter addressed to "whom it may concern." She was taken to [facility] where she was intubated and stabilized in the ICU. [facility] reports this is her 2nd suicide attempt in the past two weeks. Her drug screen was positive for methamphetamine and amphetamines. Diagnosis/presenting symptoms: Mood disorder. Personality Disorder. Assessment: What has happened this shift: Pt asleep at start of shift. Awakened for HS meds requested Ambien. Pt says her depression has improved while she is here she describes herself as "A little bit Depressed a little bit Suicidal." Pt says when she leaves here she would like to go to [facility] and then to [place]. S/I, H/I: Pt. confirms that she is still a little suicidal. A/VH: denies Sleep: Sleeping at this time ADL's: independent Group attendance: Yes Were Meds taken: yes Any med S/E: None noted or observed Mental Status Exam Appearance: Tall blonde female wearing scrubs. Clean and neat. Eye contact: Fair Behavior: Calm and cooperative. Speech: Clear Mood: Improving depression. Affect: Blunted Thought process: Goal oriented, linear. Thought Content: Maintaining sobriety, housing. Cognition: A/Ox4 Insight: Fair. Judgment: Fair. Interventions PRN's used: nicotine gum Therapeutic interventions: 1:1 to assess for severity of symptoms, provided active listening; encouraged participation in ADL's and groups, maintained q 15min safety checks Restraints/seclusion/emergency medication: N/A Justification of Continued Inpatient Treatment: Patient has had two recent suicide attempts. Unless patient is fully stabilized, she would be a DTS.
[2018-05-23 07:00] VITALS: BP 129/95
[2018-05-23] MEDS: nicotine prolacrilex 2mg gum BC PRN ×2 (07:01→11:27)
[2018-05-23] MEDS: lisdexamfetamine dimesylate 40mg capsule PO SCH (07:05)
[2018-05-23] MEDS: pantoprazole 40mg Tablet.DR PO SCH (07:05)
[2018-05-23] MEDS: haloperidol 10mg/5ml UD oral solution PO SCH ×2 (07:06→18:43)
[2018-05-23] MEDS: nicotine 21mg patch - 24 hr TD SCH (07:08)
--- NOTE | 2018-05-23 09:53 | NUR ---
Reassessment: Appetite appears to wax and wane with average PO intake about 75%. Pt with routine BMs, milk of magnesia given prn on 05/21 and 05/22. Per documented weights there was a 21 lb difference using standing scale in 6 days, patient's good PO intake does not support a 21 lb weight loss in 6 days and this is likely a weighing error. No nutrition problem at this time. Recommend: 1. Continue regular diet 2. Bowel care as needed to support routine BM 3. Weekly weights Addendum: 05/23/18 at [address] Amended: Links added.
[2018-05-23] MEDS ORDERED: nicotine prolacrilex 4mg gum BC PRN (15:45)
--- NOTE | 2018-05-23 16:45 | NUR ---
RN Progress Note: Chief Complaint: Depression, two recent suicide attempts Legal hold: Voluntary Client on voluntary status for DTS Report received from ROMIE Sosa with use of SBAR. Why are they here: She was found on the of this month unresponsive by [place] law enforcement officers in a local motel room after taking an unknown amount of trazodone and propranolol in a suicide attempt. Prior to taking the overdose she wrote a long rambling angry, paranoid suicide letter addressed to "whom it may concern." She was taken to [facility] where she was intubated and stabilized in the ICU. [facility] reports this is her 2nd suicide attempt in the past two weeks. Her drug screen was positive for methamphetamine and amphetamines. Diagnosis/presenting symptoms: Mood disorder. Personality Disorder. Assessment: What has happened this shift: Patient has been upbeat today. States she is hopeful about the future. Wants to discharge to [facility]. Denies depression. S/I, H/I: Pt. confirms that she is still a little suicidal. A/VH: denies Sleep: Pt. awake during daytime. ADL's: independent Group attendance: Yes Were Meds taken: yes Any med S/E: None noted or observed Mental Status Exam Appearance: Tall blonde female wearing scrubs. Clean and neat. Eye contact: Fair Behavior: Calm and cooperative. Speech: Clear Mood: Euthymic. Affect: Brightened. Thought process: Goal oriented, linear. Thought Content: Maintaining sobriety, housing. Cognition: A/O x 4 Insight: Fair. Judgment: Fair. Interventions PRN's used: nicotine gum Therapeutic interventions: 1:1 to assess for severity of symptoms, provided active listening; encouraged participation in ADL's and groups, maintained q 15min safety checks Restraints/seclusion/emergency medication: N/A Justification of Continued Inpatient Treatment: Patient has had two recent suicide attempts. Unless patient is fully stabilized, she would be a DTS.
[2018-05-23 19:55] VITALS: BP 117/70
[2018-05-23] MEDS: aripiprazole 5mg tablet PO SCH (20:52)
--- NOTE | 2018-05-24 02:16 | NUR ---
RN Progress Note: Chief Complaint: Depression, two recent suicide attempts Legal hold: Voluntary Client on voluntary status for DTS Report received from ROMIE Dickerson with use of SBAR. Why are they here: She was found on the of this month unresponsive by [place] law enforcement officers in a local motel room after taking an unknown amount of trazodone and propranolol in a suicide attempt. Prior to taking the overdose she wrote a long rambling angry, paranoid suicide letter addressed to "whom it may concern." She was taken to [facility] where she was intubated and stabilized in the ICU. [facility] reports this is her 2nd suicide attempt in the past two weeks. Her drug screen was positive for methamphetamine and amphetamines. Diagnosis/presenting symptoms: Mood disorder. Personality Disorder. Assessment: What has happened this shift: Pt in bed at start of shift. Declined to come to groupr room. Said she is tired. Pt said she had a good day smiling when she said it. . Pt says her depression has improved while she is here she describes herself as "A little bit Depressed a little bit Suicidal." Pt says when she leaves here she would like to go to [facility] and then to [place]. S/I, H/I: Pt. confirms that she is still a little suicidal. A/VH: denies Sleep: Sleeping at this time ADL's: independent Group attendance: Yes Were Meds taken: yes Any med S/E: None noted or observed Mental Status Exam Appearance: Tall blonde female wearing scrubs. Clean and neat. Eye contact: Fair Behavior: Calm and cooperative. Speech: Clear Mood: Improving depression. Affect: Blunted Thought process: Goal oriented, linear. Thought Content: Maintaining sobriety, housing. Cognition: A/Ox4 Insight: Fair. Judgment: Fair. Interventions PRN's used: nicotine gum Therapeutic interventions: 1:1 to assess for severity of symptoms, provided active listening; encouraged participation in ADL's and groups, maintained q 15min safety checks Restraints/seclusion/emergency medication: N/A Justification of Continued Inpatient Treatment: Patient has had two recent suicide attempts. Unless patient is fully stabilized, she would be a DTS.
[2018-05-24] MEDS: pantoprazole 40mg Tablet.DR PO SCH (07:45)
[2018-05-24] MEDS: lisdexamfetamine dimesylate 40mg capsule PO SCH ×2 (07:45→08:00)
[2018-05-24] MEDS: nicotine 21mg patch - 24 hr TD SCH (07:46)
[2018-05-24] MEDS: haloperidol 10mg/5ml UD oral solution PO SCH ×2 (07:46→17:37)
[2018-05-24] MEDS: nicotine prolacrilex 2mg gum BC PRN ×2 (07:46→13:08)
[2018-05-24 07:58] VITALS: BP 112/59
--- NOTE | 2018-05-24 17:01 | NUR ---
RN Progress Note: Chief Complaint: Depression, two recent suicide attempts Legal hold: Voluntary Client on voluntary status for DTS Report received from ROMIE Sosa with use of SBAR. Why are they here: She was found on the of this month unresponsive by [place] law enforcement officers in a local motel room after taking an unknown amount of trazodone and propranolol in a suicide attempt. Prior to taking the overdose she wrote a long rambling angry, paranoid suicide letter addressed to "whom it may concern." She was taken to [facility] where she was intubated and stabilized in the ICU. [facility] reports this is her 2nd suicide attempt in the past two weeks. Her drug screen was positive for methamphetamine and amphetamines. Diagnosis/presenting symptoms: Mood disorder. Personality Disorder. Assessment: What has happened this shift: Pt slept on and off throughout the shift. She denies SI. Plans to discharge to [place] on . S/I, H/I: Denies A/VH: Denies Sleep: Napped on and off later in the shift ADL's: Independent Group attendance: Y Were Meds taken: Y Any med S/E: None noted or observed Mental Status Exam Appearance: Tall blonde female wearing scrubs. Eye contact: Fair Behavior: Calm and cooperative. Speech: Clear Mood: Euthymic. Affect: Normal range Thought process: Goal oriented, linear. Thought Content: Maintaining sobriety, housing. Cognition: A/Ox4 Insight: Fair. Judgment: Fair. Interventions PRN's used: Nicotine gum Therapeutic interventions: 1:1 to assess for severity of symptoms, provided active listening; encouraged participation in ADL's and groups, maintained q 15min safety checks Restraints/seclusion/emergency medication: N/A Justification of Continued Inpatient Treatment: Patient has had two recent suicide attempts is in need of medication stabilization to prevent hospitalization.
[2018-05-24 20:16] VITALS: BP 112/62
[2018-05-24] MEDS: aripiprazole 5mg tablet PO SCH (20:52)
--- NOTE | 2018-05-25 01:50 | NUR ---
RN Progress Note: Chief Complaint: Depression, two recent suicide attempts Legal hold: Voluntary Client on voluntary status for DTS Report received from ROMIE Boyd with use of SBAR. Why are they here: She was found on the of this month unresponsive by [place] law enforcement officers in a local motel room after taking an unknown amount of trazodone and propranolol in a suicide attempt. Prior to taking the overdose she wrote a long rambling angry, paranoid suicide letter addressed to "whom it may concern." She was taken to [facility] where she was intubated and stabilized in the ICU. [facility] reports this is her 2nd suicide attempt in the past two weeks. Her drug screen was positive for methamphetamine and amphetamines. Diagnosis/presenting symptoms: Mood disorder. Personality Disorder. Assessment: What has happened this shift: Pt awake in lu at start of shift. Denies she slept all day "I was reading." She denies SI. excited to be discharging to [place] on . S/I, H/I: Denies A/VH: Denies Sleep: Napped on and off later in the shift ADL's: Independent Group attendance: Y Were Meds taken: Y Any med S/E: None noted or observed Mental Status Exam Appearance: Tall blonde female wearing scrubs. Eye contact: Fair Behavior: Calm and cooperative. Speech: Clear Mood: Euthymic. Affect: Normal range Thought process: Goal oriented, linear. Thought Content: Maintaining sobriety, housing. Cognition: A/Ox4 Insight: Fair. Judgment: Fair. Interventions PRN's used: Nicotine gum Therapeutic interventions: 1:1 to assess for severity of symptoms, provided active listening; encouraged participation in ADL's and groups, maintained q 15min safety checks Restraints/seclusion/emergency medication: N/A Justification of Continued Inpatient Treatment: Patient has had two recent suicide attempts is in need of medication stabilization to prevent hospitalization.
[2018-05-25 08:00] VITALS: BP 117/63
[2018-05-25] MEDS: lisdexamfetamine dimesylate 40mg capsule PO SCH ×2 (08:00→08:39)
[2018-05-25] MEDS: nicotine 21mg patch - 24 hr TD SCH (08:37)
[2018-05-25] MEDS: pantoprazole 40mg Tablet.DR PO SCH (08:39)
[2018-05-25] MEDS: haloperidol 10mg/5ml UD oral solution PO SCH ×2 (08:46→18:02)
[2018-05-25] MEDS: NICOTINE POLACRILEX 2 MG LOZENGE MM PRN (14:05)
[2018-05-25] MEDS ORDERED: ARIP400S2 IM ×2 (15:00→22:03)
[2018-05-25] MEDS ORDERED: HALO1TAB PO (15:00)
[2018-05-25] MEDS ORDERED: PANT40TA4 PO (15:00)
[2018-05-25] MEDS ORDERED: ZOLP10TA PO (15:00)
[2018-05-25] MEDS ORDERED: LISD50CA3 PO (15:00)
[2018-05-25] MEDS ORDERED: ARIP30TA11 PO (15:00)
--- NOTE | 2018-05-25 17:57 | NUR ---
RN Progress Note: Chief Complaint: Depression, two recent suicide attempts Legal hold: Voluntary Client on voluntary status for DTS Report received from ROMIE Sosa with use of SBAR. Why are they here: She was found on the of this month unresponsive by [place] law enforcement officers in a local motel room after taking an unknown amount of trazodone and propranolol in a suicide attempt. Prior to taking the overdose she wrote a long rambling angry, paranoid suicide letter addressed to "whom it may concern." She was taken to [facility] where she was intubated and stabilized in the ICU. [facility] reports this is her 2nd suicide attempt in the past two weeks. Her drug screen was positive for methamphetamine and amphetamines. Diagnosis/presenting symptoms: Mood disorder. Personality Disorder. Assessment: What has happened this shift: Pt slept on and off throughout the shift. She denies SI. Plans to discharge to [place] tomorrow, . Spent afternoon working on details/logistics to affect DC. Pleasant and cooperative to speak with and with other clients. Engaged in meals and groups. Continues to write letters to [facility] [employer] with related delusions of some sort of relationship with him. Only PRN given was nicotine lozenge. S/I, H/I: Denies A/VH: Denies Sleep: Napped on and off ADL's: Independent Group attendance: Y Were Meds taken: Y Any med S/E: None noted or observed Mental Status Exam Appearance: well kempt wearing street clothes Eye contact: Fair Behavior: Calm and cooperative. Speech: Clear Mood: Euthymic. Affect: Normal range Thought process: Goal oriented, linear. Thought Content: Maintaining sobriety, housing. Cognition: A/Ox4 Insight: Fair. Judgment: Fair. Interventions PRN's used: Nicotine gum Therapeutic interventions: 1:1 to assess for severity of symptoms, provided active listening; encouraged participation in ADL's and groups, maintained q 15min safety checks. Discussed details of DC plan to [place]. Restraints/seclusion/emergency medication: N/A Justification of Continued Inpatient Treatment: Patient has had two recent suicide attempts is in need of medication stabilization to prevent hospitalization.
[2018-05-25 19:50] VITALS: BP 115/75
[2018-05-25] MEDS: zolpidem 5mg tablet PO PRN (20:16)
[2018-05-25] MEDS: aripiprazole 5mg tablet PO SCH (20:16)
--- NOTE | 2018-05-25 20:34 | NUR ---
RN Progress Note: Chief Complaint: Depression, two recent suicide attempts Legal hold: Voluntary Client on voluntary status for DTS Report received from Fernandez GRUBBS with use of SBAR. Why are they here: She was found on the of this month unresponsive by [place] law enforcement officers in a local motel room after taking an unknown amount of trazodone and propranolol in a suicide attempt. Prior to taking the overdose she wrote a long rambling angry, paranoid suicide letter addressed to "whom it may concern." She was taken to [facility] where she was intubated and stabilized in the ICU. [facility] reports this is her 2nd suicide attempt in the past two weeks. Her drug screen was positive for methamphetamine and amphetamines. Diagnosis/presenting symptoms: Mood disorder. Personality Disorder. Assessment: What has happened this shift: Pt was laying in bed at change of shift. 1:1 assessment completed at bedside. Pt answers she is "good" to most questions. States she attended group today and talked about things they were grateful for. Pt is looking forward to discharge and hoping that happens tomorrow. pt requested prn for sleep tonight. She reports appetite and sleep are good but thinks ambien will help w/sleep. She is somewhat anxious about dc tomorrow. Pt remained in bed this shift and did not get up for snacs. she is pleasant and cooperative, sleeping w/ear plugs. pt denies s/i S/I, H/I: Denies A/VH: Denies Sleep: sleeping most of the shift ADL's: Independent Group attendance: Y Were Meds taken: Y Any med S/E: None noted or observed Mental Status Exam Appearance: hair is neat and well groomed, adequately groomed and dressed Eye contact: good Behavior: pleasant and cooperative. Speech: Clear Mood: Euthymic. Affect: WNl Thought process: Goal oriented, linear. Thought Content: discharge Cognition: A/Ox4 Insight: Fair. Judgment: Fair. Interventions PRN's used: Ambien for sleep Therapeutic interventions: 1:1 to assessment, maintained q 15min safety checks. Restraints/seclusion/emergency medication: N/A Justification of Continued Inpatient Treatment: Patient has had two recent suicide attempts is in need of medication stabilization/group therapy to continue to prevent hospitalization.
[2018-05-25] MEDS ORDERED: AMPH20CA11 PO (22:03)
[2018-05-26] MEDS: lisdexamfetamine dimesylate 40mg capsule PO SCH ×2 (07:01→07:44)
[2018-05-26] MEDS: haloperidol 10mg/5ml UD oral solution PO SCH (07:44)
[2018-05-26] MEDS: pantoprazole 40mg Tablet.DR PO SCH (07:44)
[2018-05-26] MEDS: nicotine 21mg patch - 24 hr TD SCH (07:46)
[2018-05-26 08:00] VITALS: BP 116/80
[2018-05-26] MEDS: NICOTINE POLACRILEX 2 MG LOZENGE MM PRN ×2 (08:33→12:34)
--- NOTE | 2018-05-26 13:38 | NUR ---
Patient Discharge Note: Pt discharged at 1330, left [facility] ambulatory accompanied by Art, from [facility]. Pt discharging to [facility] and transported via [employer]'s vehicle. Pt's possessions inventoried by AIRAM Ortega. Pt signed the possessions form and verbally acknowledged that she had all her possessions. Discharge instructions given and pt given opportunity to answer questions. Pt's medications delivered by [facility] and pt took medications with her. Community crisis service information and national suicide hotline handout given. Pt given information to followup with the [facility]. Nicotine replacement offered, but pt refused. Pt improving since admit. No acute physical or emotional distress. Pt denies depression and suicidal ideation. She stated, "not going to attempt suicide again." She talked about how frightening it was to wake up intubated following her recent suicide attempt. She said when she attempted suicide she really didn't want to and thought she would wake up somewhere else. Pt denies A/VH. She is pleasant and her affect is bright. She readily smiles while talking about her discharge plans.
== END 2018-05-26 13:30 | disposition short-term general hospital (02) | DRG 885 ==
LOC: PACU 05-11 00:13 → ADULT MH 05-11 00:27
PROVIDERS: ADMIT Psychiatry & Neurology Psychiatry; ATTEND Psychiatry & Neurology Psychiatry
DX: F33.9 Major depressive disorder, recurrent, unspecified (principal); R45.851 Suicidal ideations; F15.150 Other stimulant abuse with stimulant-induced psychotic disorder with delusions; E03.9 Hypothyroidism, unspecified; F17.210 Nicotine dependence, cigarettes, uncomplicated; F60.9 Personality disorder, unspecified; F43.12 Post-traumatic stress disorder, chronic; F90.9 Attention-deficit hyperactivity disorder, unspecified type; G89.29 Other chronic pain; M54.5 Low back pain; K21.9 Gastro-esophageal reflux disease without esophagitis; T44.7X2D Poisoning by beta-adrenoreceptor antagonists, intentional self-harm, subsequent encounter; T43.212D Poisoning by selective serotonin and norepinephrine reuptake inhibitors, intentional self-harm, subsequent encounter; Z98.84 Bariatric surgery status; Z87.820 Personal history of traumatic brain injury; Z91.410 Personal history of adult physical and sexual abuse; Z81.8 Family history of other mental and behavioral disorders; Z71.6 Tobacco abuse counseling; Y92.89 Other specified places as the place of occurrence of the external cause
CPT/HCPCS: 36415; 80053; 80061; 81001; 81025; 82948; 84439; 84443; 85025; 87070; Q0177

== ENCOUNTER 2018-06-08 20:25 | Emergency (ER) | payer MEDICARE, OTHER ==
[~2018-06-08] VITALS: Ht 170.2 cm; Wt 89.6 kg
[~2018-06-08 20:25] MED LIST changes: +AMPH20CA11 PO; +ARIP30TA11 PO; +ARIP400S2 IM; +HALO1TAB PO; -HYDR-3686 PO; -PROP10TA10 PO; -TRAZ-218 PO; +ZOLP10TA PO
[2018-06-08 21:52] LABS: BASOPHILS % (AUTO) 0.2 % (0-1); EOSINOPHILS # (AUTO) 0.2 X10'3 (0-0.9); EOSINOPHILS % (AUTO) 2.2 % (0-6); HEMATOCRIT 34.5 % (35.0-45.0); HEMOGLOBIN 11.3 g/dl (12.0-16.0); LYMPHOCYTES # (AUTO) 2.6 X10'3 (1.1-4.8); LYMPHOCYTES % (AUTO) 31.2 % (21-51); MEAN CORPUSCULAR HEMOGLOBIN 26.3 PG (27.0-31.0); MEAN CORPUSCULAR HGB CONC 32.8 g/dL (33.0-36.5); MEAN CORPUSCULAR VOLUME 80.3 FL (78-98); MEAN PLATELET VOLUME 8.9 FL (7.4-10.4); MONOCYTES # (AUTO) 0.5 X10'3 (0-0.9); MONOCYTES % (AUTO) 5.9 % (2-12); NEUTROPHILS # (AUTO) 5.1 X10'3 (1.8-7.7); NEUTROPHILS % (AUTO) 60.5 % (42-75); PLATELET COUNT 335 X10'3 (140-440); WHITE BLOOD COUNT 8.5 X10'3 (4.5-11.0)
--- NOTE | 2018-06-08 22:03 | NUR ---
ATTEMPTED TO COLLECT UA. PATIENT UNABLE TO PROVIDE SPECIMEN AT THIS TIME. WILL ATTEMPT AGAIN SHORTLY.
[2018-06-08 22:05] LABS: ALANINE AMINOTRANSFERASE 21 U/L (12-78); ALBUMIN 3.5 G/DL (3.4-5.0); ALKALINE PHOSPHATASE 57 IU/L (46-116); ANION GAP 10 (8-16); ASPARTATE AMINO TRANSFERASE 12 U/L (10-37); BILIRUBIN,TOTAL 0.3 MG/DL (0.1-1.0); BLOOD UREA NITROGEN 15 MG/DL (7-18); CALCIUM 8.9 MG/DL (8.5-10.1); CHLORIDE 104 MMOL/L (99-107); CREATININE 0.88 MG/DL (0.40-0.90); GLUCOSE 99 MG/DL (70-104); POTASSIUM 3.8 MMOL/L (3.5-5.1); SODIUM 141 MMOL/L (135-145); TOTAL CARBON DIOXIDE 27.3 MMOL/L (24-32); TOTAL PROTEIN 7.1 G/DL (6.4-8.2); eGFR 70 ML/MIN
[2018-06-08 22:38] LABS: ETHANOL < 0.010 GM/DL (0.0-0.010)
--- NOTE | 2018-06-08 23:06 | NUR ---
Patient sleeping comfortably and in no distress.
--- NOTE | 2018-06-08 23:26 | NUR ---
took urine to the lab
[2018-06-08 23:40] LABS: URINE HCG NEGATIVE (NEG)
[2018-06-08 23:52] LABS: URINE AMPHETAMINE SCREEN POSITIVE (Neg); URINE BARBITUATE SCREEN NEGATIVE (Neg); URINE BENZODIAZEPINES SCREEN NEGATIVE (Neg); URINE CANNABINOID SCREEN NEGATIVE (Neg); URINE COCAINE SCREEN NEGATIVE (Neg); URINE METHADONE SCREEN NEGATIVE (Neg); URINE OPIATE SCREEN NEGATIVE (Neg); URINE PHENCYCLIDINE SCREEN NEGATIVE (Neg)
--- NOTE | 2018-06-08 23:57 | NUR ---
Telepsychiatrist updated on patient's condition. He is now speaking with the patient.
[2018-06-08 23:58] LABS: CLARITY,URINE CLEAR (Clear); COLOR,URINE YELLOW (Yellow); GLUCOSE, URINE NEGATIVE (Neg); KETONES,URINE NEGATIVE (Neg); LEUKOCYTE ESTERASE ,URINE NEGATIVE (Neg); NITRITES, URINE NEGATIVE (Neg); OCCULT BLOOD,URINE NEGATIVE (Neg); PH,URINE 5.5 (4.8-8.0); PROTEIN,URINE NEGATIVE (Neg); UROBILINOGEN,URINE 0.2 E.U/dL (0.2-1.0)
[2018-06-08 23:59] LABS: UA COLLECTION TYPE CLN CATCH MIDSTREAM
--- NOTE | 2018-06-09 00:44 | NUR ---
Telepsych recommendations provided to Dr. Hu. She wants to keep the patient until [facility] can evaluate the patient to ensure she has the appropriate resources considering her recent previous intentional overdoses.
--- NOTE | 2018-06-09 09:30 | NUR ---
RCVD REPORT FROM [facility], RN, PT IS IN BED RESTING, NO S/S OF DISTRESS
[2018-06-09] MEDS ORDERED: nicotine 14mg patch - 24hr TD ONE (10:10)
--- NOTE | 2018-06-09 10:15 | NUR ---
PT REQUESTED NICOTINE PATCH, OBTAINED ORDER, SHE IS CALM NO S/S OF DISTRESS
[2018-06-09] MEDS ORDERED: LORazepam 0.5 MG tablet PO PRN (10:40)
--- NOTE | 2018-06-09 11:01 | NUR ---
pt had requested Ativan, obtained order and dispenced, she is resting on her left side, eyes closed, equal, regular breathing, no s/s of distress observed
--- NOTE | 2018-06-09 12:13 | NUR ---
pt is in bed on right side, eyes closed, even, unlabored breathing present, no s/s of distress observed
--- NOTE | 2018-06-09 13:10 | NUR ---
pt calmly eating lunch, no s/s of distress observed
--- NOTE | 2018-06-09 14:22 | NUR ---
pt is in bed supine, regular breathing, no s/s of distress noted
--- NOTE | 2018-06-09 15:44 | NUR ---
pt is in bed, again on right side, no s/s of distress observed
--- NOTE | 2018-06-09 16:35 | NUR ---
[employer] L[employer] from [facility] here to transport patient to [facility]. Escorted out of ER with all her personal belongings, ambulatory, accompanied by security without event.
--- NOTE | 2018-06-09 16:37 | NUR ---
Nurse to nurse report given to RN at [facility].
[2018-06-09 16:44] VITALS: BP 134/90
== END 2018-06-09 16:35 ==
LOC: ER 20:25
DX: F32.9 Major depressive disorder, single episode, unspecified (principal); F15.10 Other stimulant abuse, uncomplicated; F14.10 Cocaine abuse, uncomplicated; Z88.8 Allergy status to other drugs, medicaments and biological substances
CPT/HCPCS: 36415; 80053; 80305; 80320; 81003; 81025; 84443; 85025; 99285

== ENCOUNTER 2018-06-22 13:53 | Emergency (ER) | payer MEDICARE, OTHER ==
[~2018-06-22] VITALS: Ht 172.7 cm; Wt 90.9 kg
[2018-06-22] MEDS ORDERED: normal saline 1000ML IV soln IVB ONE ×2 (14:30→14:45)
[2018-06-22 15:14] LABS: BASOPHILS % (AUTO) 0.3 % (0-1); EOSINOPHILS % (AUTO) 0.4 % (0-6); HEMATOCRIT 32.1 % (35.0-45.0); HEMOGLOBIN 10.5 g/dl (12.0-16.0); LYMPHOCYTES # (AUTO) 0.7 X10'3 (1.1-4.8); LYMPHOCYTES % (AUTO) 13.1 % (21-51); MEAN CORPUSCULAR HEMOGLOBIN 25.5 PG (27.0-31.0); MEAN CORPUSCULAR HGB CONC 32.7 g/dL (33.0-36.5); MEAN CORPUSCULAR VOLUME 78.2 FL (78-98); MEAN PLATELET VOLUME 8.8 FL (7.4-10.4); MONOCYTES # (AUTO) 0.2 X10'3 (0-0.9); MONOCYTES % (AUTO) 3.3 % (2-12); NEUTROPHILS # (AUTO) 4.5 X10'3 (1.8-7.7); NEUTROPHILS % (AUTO) 82.9 % (42-75); PLATELET COUNT 248 X10'3 (140-440); RED BLOOD COUNT 4.11 X10'6 (4.20-5.60); RED CELL DISTRIBUTION WIDTH 15.6 % (11.5-14.5); WHITE BLOOD COUNT 5.4 X10'3 (4.5-11.0)
--- NOTE | 2018-06-22 15:46 | NUR ---
Dr Alvarado stated that he did not need a UA before discharge.
[2018-06-22 17:15] LABS: ALANINE AMINOTRANSFERASE 14 U/L (12-78); ALBUMIN 3.6 G/DL (3.4-5.0); ALBUMIN/GLOBULIN RATIO 1.1 (1.1-1.5); ALKALINE PHOSPHATASE 56 IU/L (46-116); ANION GAP 13 (8-16); ASPARTATE AMINO TRANSFERASE 18 U/L (10-37); BILIRUBIN,TOTAL 0.5 MG/DL (0.1-1.0); BLOOD UREA NITROGEN 14 MG/DL (7-18); BUN/CREATININE RATIO 18.2 (6.6-38.0); CALCIUM 8.4 MG/DL (8.5-10.1); CHLORIDE 101 MMOL/L (99-107); CREATININE 0.77 MG/DL (0.40-0.90); GLUCOSE 88 MG/DL (70-104); POTASSIUM 3.3 MMOL/L (3.5-5.1); SODIUM 137 MMOL/L (135-145); TOTAL CARBON DIOXIDE 23.3 MMOL/L (24-32); TOTAL PROTEIN 6.8 G/DL (6.4-8.2); eGFR 81 ML/MIN
--- NOTE | 2018-06-22 17:18 | NUR ---
Contacted [employer] for pt; ETA 20 mintues.
[2018-06-22 17:27] VITALS: BP 136/87
== END 2018-06-22 17:29 | disposition home or self-care (01) ==
LOC: ER 13:54
DX: F10.129 Alcohol abuse with intoxication, unspecified (principal); F15.10 Other stimulant abuse, uncomplicated; F11.90 Opioid use, unspecified, uncomplicated; Z88.8 Allergy status to other drugs, medicaments and biological substances; Y90.9 Presence of alcohol in blood, level not specified
CPT/HCPCS: 36415; 80053; 80320; 85025; 99284; J7030

== ENCOUNTER 2018-07-22 17:25 | Inpatient (IN) | payer MEDICARE, OTHER | END 2018-08-10 22:25 | disposition still patient (30) | LOC: ADULT MH 17:25 | DX: R45.851 Suicidal ideations (principal); F32.9 Major depressive disorder, single episode, unspecified; F43.10 Post-traumatic stress disorder, unspecified ==